=== PATIENT | female | born 1965 | race African-American/Black ===

== ENCOUNTER 2018-06-09 10:39 | Inpatient (IN) | payer BC, OTHER ==
--- NOTE | 2018-06-09 11:37 | PDOC ---
Attending Attestation - Resident Resident Name: Genevieve Cardenas - ED Attending Attestation I have performed the following: I have examined & evaluated the patient, The case was reviewed & discussed with the resident, I agree w/resident's findings & plan, Exceptions are as noted - HPI HPI: 53 yo F history chronic low back pain s/p prior surgery presents with low back pain. She states that she was doing laundry, lifted the bag over her back and developed severe pain. She has been using percocet (she has an unusual dosing regimen- she typically takes half a pill every 3 hours, instead of a full pill every 8 as directed, stating it makes her nauseous otherwise) without relief. Recently treated in [facility] ED for similar complaint. She takes naproxen/ esomeprazole combo as well, which did not give her relief. She has been using a cane to walk, which she did not require before. - Physicial Exam PE: GENERAL: Awake, alert, and fully oriented, in no acute distress HEAD: No signs of trauma EYES: PERRLA, EOMI, sclera anicteric, conjunctiva clear ENT: Auricles normal inspection, hearing grossly normal, nares patent, oropharynx clear without exudates. Moist mucosa NECK: Normal ROM, supple, no lymphadenopathy, JVD, or masses LUNGS: Breath sounds equal, clear to auscultation bilaterally. No wheezes, and no crackles HEART: Regular rate and rhythm, normal S1 and S2, no murmurs, rubs or gallops ABDOMEN: Soft, nontender, normoactive bowel sounds. No guarding, no rebound. No masses EXTREMITIES: Normal range of motion, no edema. No clubbing or cyanosis. No cords, erythema, or tenderness NEUROLOGICAL: Cranial nerves II through XII grossly intact. Normal speech, normal gait. Motor and sensation intact SKIN: Warm, Dry, normal turgor, no rashes or lesions noted. SPINE: +Well-healed scar to the lower lumbar area. No midline tenderness, no stepoffs. - Medical Decision Making Reference #: [id number]- No red flags in past prescriptions 06/09/18 11:55 Pt with history of chronic low back pain exacerbated by a recent event, lifting a bag and throwing it over her back. Will give a combination of medications, as her usual percocet is not helping. 06/09/18 15:28 Pt required multiple rounds (and types) of pain medication. Will admit for intractable pain.
[2018-06-09] MEDS ORDERED: ONDANSETRON 8 MG TABLET (FP) PO ONE ×2 (11:40→11:48)
--- NOTE | 2018-06-09 11:46 | PDOC ---
History of Present Illness - General Chief Complaint: Chronic pain Stated Complaint: BACK PAIN Time Seen by Provider: 06/09/18 11:06 - History of Present Illness Initial Comments: 06/09/18 11:41 Patient is a 53 y/o female with a history of low back pain who presents for increased pain. She had lower spinal surgery in 2011 and has had mild chronic pain since then. Most recently she was doing her laundry and when lifting the bag she hurt her back. She typically follows with a spine surgeon Dr. Espinoza for her pain management. She states she takes 5 mg percocet for her pain but it has not been helping. She was recently discharged from [facility] [place]. Spoke to them who stated she was given 4mg of morphine, they spoke to Dr. Espinoza who stated she can follow up as an outpatient. Patient reports she has pain when going to the bathroom but denies incontinence. She has pain with walking but is still able to walk. She has numbness and tingling in her legs. patient has no other complaints. Past History - Past Medical History Allergies/Adverse Reactions: Allergies Allergy/AdvReac Type Severity Reaction Status Date / Time tramadol Allergy Intermediate Hives Verified 06/09/18 10:42 Home Medications: Ambulatory Orders Naproxen/Esomeprazole Mag [Vimovo Dr 500-20 mg Tablet] 1 each PO DAILY 06/09/18 Oxycodone HCl/Acetaminophen [Percocet 10-325 mg Tablet] 1 each PO DAILY COPD: No - Suicide/Smoking/Psychosocial Hx Smoking History: Current every day smoker Have you smoked in the past 12 months: Yes Number of Cigarettes Smoked Daily: 10 Information on smoking cessation initiated: No Hx Alcohol Use: No Drug/Substance Use Hx: Yes Review of Systems - Review of Systems Constitutional: No: Chills, Fever HEENTM: No: Eye Pain Respiratory: No: Cough, Shortness of Breath Cardiac (ROS): No: Chest Pain ABD/GI: No: Constipated, Diarrhea, Nausea Musculoskeletal: Yes: Back Pain, Joint Pain Neurological: No: Headache *Physical Exam - Vital Signs Last Vital Signs Temp Pulse Resp BP Pulse Ox 97.9 F 72 18 168/92 99 06/09/18 10:42 06/09/18 10:42 06/09/18 10:42 06/09/18 10:42 06/09/18 10:42 - Physical Exam Comments: 06/09/18 11:46 GENERAL: A&O x3 HEART: RRR, no murmurs, rubs, or gallops LUNGS: CTAL B/L ABD: no tenderness to palpation, soft,, non tender EXTREMITIES: no pitting edema NEURO: sensation intact, 5/5 on L leg, 4/6 on R leg SKIN: no rashes or lesions Moderate Sedation - Procedure Monitoring Vital Signs: Procedure Monitoring Vital Signs Temperature 97.9 F 06/09/18 10:42 Pulse Rate 72 06/09/18 10:42 Respiratory Rate 18 06/09/18 10:42 Blood Pressure 168/92 06/09/18 10:42 O2 Sat by Pulse Oximetry (%) 99 06/09/18 10:42 ED Treatment Course - LABORATORY CBC & Chemistry Diagram: 06/09/18 12:43 06/09/18 12:43 Medical Decision Making - Medical Decision Making 06/09/18 11:48 Pain 2/2 to chronic back pain, patient given 5 of percocet and Zofran 06/09/18 17:58 Patient for admission, discussed with Dr. Mosley *DC/Admit/Observation/Transfer Diagnosis at time of Disposition: Intractable pain - Discharge Dispostion Decision to Admit order: Yes - Referrals - Patient Instructions - Post Discharge Activity
[2018-06-09] MEDS ORDERED: LIDOCAINE 5% TOPICAL PATCH TP ONE (11:56)
[2018-06-09] MEDS ORDERED: METHOCARBAMOL 500 MG TABLET PO ONE (11:56)
[2018-06-09] MEDS ORDERED: morphine CARPU-JECT 4 MG/1 ML DISP.SYRIN IVPUSH ONE ×2 (12:29→14:02)
[2018-06-09] MEDS ORDERED: morphine SULFATE 4 MG/ML VIAL ONE ×2 (12:40→14:24)
[2018-06-09] MEDS ORDERED: MORPHINE SULFATE 2 MG/ML VIAL ONE ×2 (12:41→16:43)
[2018-06-09 13:03] LABS: BASO % 1.1 % (0-2.0); EOS % 0.7 % (0-4.5); HEMATOCRIT 39.2 % (32.4-45.2); HEMOGLOBIN 13.6 GM/dL (10.7-15.3); LYMPH % 34.8 % (8-40); MCH 34.3 pg (25.7-33.7); MCHC 34.7 g/dl (32.0-36.0); MEAN CELL VOLUME 98.8 fl (80-96); MEAN PLT VOLUME 9.6 fl (7.5-11.1); MONO % 9.7 % (3.8-10.2); NEUT % 53.7 % (42.8-82.8); PLATELET COUNT 214 K/MM3 (134-434); RBC 3.97 M/mm3 (3.60-5.2); RDW 13.1 % (11.6-15.6)
[2018-06-09 13:38] LABS: ALBUMIN 4.1 g/dl (3.4-5.0); ALK PHOS 91 U/L (45-117); ANION GAP 5 MMOL/L (8-16); BILIRUBIN,TOTAL 0.9 mg/dL (0.2-1); BLOOD UREA NITROGEN 8 mg/dL (7-18); CALCIUM 8.9 mg/dL (8.5-10.1); CHLORIDE 102 mmol/L (98-107); CO2 29 mmol/L (21-32); CREATININE 0.7 mg/dL (0.55-1.3); GLUCOSE,RANDOM 84 mg/dL (74-106); POTASSIUM 3.6 mmol/L (3.5-5.1); SGOT/AST 12 U/L (15-37); SGPT/ALT 16 U/L (13-61); SODIUM 135 mmol/L (136-145); TOT PROT 7.7 g/dl (6.4-8.2)
[2018-06-09] MEDS ORDERED: ACETAMINOPHEN 325 MG TABLET (FP) PO PRN (15:27)
--- NOTE | 2018-06-09 15:57 | HP ---
CHIEF COMPLAINT: inability to ambulate, worsening back pain PCP: Cordell Mendez HISTORY OF PRESENT ILLNESS: Patient is a 53 y/o F w/ PMHx chronic lower back pain s/p L5/S1 surgery in 2011 , under regular pain management care by Dr. Dupree on percocet and carisoprodol, p /w 1 week acute exacerbation of chronic back pain after throwing heavy bag of laundry over her shoulder. Accompanied by new onset fecal and urinary discomfort and possible incontinence -- patient is unsure whether she has full control of bladder and bowels but no overt accident at this time. Pain is not adequately relieved by home percocet dose and continues to worsen. Presented to [facility] ED 2 days ago, was sent home on pain medication and a cane with outpatient followup with pain management scheduled for next Wednesday 06/14. Presents to [facility] d/t further deterioration, Pt is now highly limited in ambulation from pain. ER course was notable for: (1) labs wnl (2) (3) Recent Travel: PAST MEDICAL HISTORY: As per HPI PAST SURGICAL HISTORY: Right hand reconstruction, tubal ligation, L5/S1 surgery as per HPI Social History: Smokin/2 ppd, 17 pack-years Alcohol: no Drugs: no Family History: DJD Allergies tramadol Allergy (Intermediate, Verified 06/09/18 10:42) Hives HOME MEDICATIONS: Home Medications Medication Instructions Recorded Naproxen/Esomeprazole Mag [Vimovo 1 each PO DAILY 06/09/18 Dr 500-20 mg Tablet] Oxycodone HCl/Acetaminophen 1 each PO DAILY 06/09/18 [Percocet 10-325 mg Tablet] REVIEW OF SYSTEMS As per HPI. PHYSICAL EXAMINATION Vital Signs - 24 hr 06/09/18 10:42 Temperature 97.9 F Pulse Rate 72 Respiratory 18 Rate Blood Pressure 168/92 O2 Sat by Pulse 99 Oximetry (%) GENERAL: A&Ox3, in mild distress HEENT: NC/AT, PERRLA, EOMI, MMM NECK: Trachea midline, full range of motion, supple. LUNGS: CTA b/l HEART: RRR no m/r/g ABDOMEN: +bs, soft, mild lower abd tenderness EXTREMITIES: 2+ pulses, warm, well-perfused, no edema. MSK: +right-sided straight leg raising, focal tenderness over L4/L5 level and paraspinal regions b/l NEUROLOGICAL: 4+/5 strength on R hip flexion/extension, +strongly antalgic gait with cane, otherwise no focal deficits, sensorium grossly intact, wire technician intact b/l PSYCH: Normal mood, normal affect. SKIN: Warm, dry, normal turgor, no rashes or lesions noted MARIA FERNANDA: deferred at patient request Laboratory Results - last 24 hr 06/09/18 06/09/18 12:43 12:43 WBC 5.0 RBC 3.97 Hgb 13.6 Hct 39.2 MCV 98.8 H MCH 34.3 H MCHC 34.7 RDW 13.1 Plt Count 214 MPV 9.6 Absolute Neuts (auto) 2.7 Neutrophils % 53.7 Lymphocytes % 34.8 Monocytes % 9.7 Eosinophils % 0.7 Basophils % 1.1 Nucleated RBC % 0 Sodium 135 L Potassium 3.6 Chloride 102 Carbon Dioxide 29 Anion Gap 5 L BUN 8 Creatinine 0.7 Creat Clearance w eGFR 87.87 Random Glucose 84 Calcium 8.9 Total Bilirubin 0.9 AST 12 L ALT 16 Alkaline Phosphatase 91 Total Protein 7.7 Albumin 4.1 ASSESSMENT/PLAN: 53 y/o F w/ PMHx chronic lower back pain s/p L5/S1 surgery in 2011, presents with mechanical acute exacerbation of back pain 2/2 lifting heavy load. #acute back pain -straight leg raise + on right side -subtle weakness of RLE -describes symptoms concerning for fecal/urinary incontinence, will perform MARIA FERNANDA when in more private setting than ED hallway -no imaging available more recent than acute injury -MRI L-spine ordered -Oxy 10 q4 PRN #FEN -no IVF -monitor electrolytes -regular diet #PPx -DVT: heparin sq -GI: not indicated #code -full #dispo -place in observation Visit type - Emergency Visit Emergency Visit: Yes Care time: The patient presented to the Emergency Department on the above date and was hospitalized for further evaluation of their emergent condition. - New Patient This patient is new to me today: Yes Date on this admission: 06/09/18 - Critical Care Critical Care patient: No
[2018-06-09] MEDS ORDERED: FENTANYL PATCH WASTE MC PRN (16:32)
--- NOTE | 2018-06-09 16:42 | PN ---
Teaching Attending Note Name of Resident: Trung Cuenca ATTENDING PHYSICIAN STATEMENT I saw and evaluated the patient. I reviewed the resident's note and discussed the case with the resident. I agree with the resident's findings and plan as documented. SUBJECTIVE:53yo F wtih PMH chronic back pain with previous spinal surgery in 2013 in [place] presenting to the ER with intractable back pain x1 week. states she was lifting a heavy laundry bag which she swung over her shoulder that caused severe back pain which has progressively worsened. pt was seen at [facility] 2 days ago, was given a cane but no imaging was done. pt is now experiencing numbness and tingling of the R anterior thigh. denies CP, SOB, fever, chills, N/V/C/D OBJECTIVE: Last Vital Signs Temp Pulse Resp BP Pulse Ox 97.9 F 72 18 168/92 99 06/09/18 10:42 06/09/18 10:42 06/09/18 10:42 06/09/18 10:42 06/09/18 10:42 General mild distress due to pain CV S1 S2 RRR lungs CTA B/L Back +tenderness on R side ASSESSMENT AND PLAN: 53yo F with chronic back pain with previous surgery presenting with intractable back pain assoc with radiculopathy 1. Intractable back pain with radiculopathy- medicine observation. will obtain MRI of the spine to evaluate. may require surgical intervention. consult neurosurgery. poor response to lidoderm patch in the past. will place fentanyl patch at this time and increase percocet to Q4H and morphine available for severe pain. 2. elevated BP- liekly due to pain. will monitor for now. consider medications if persists 3. DVT ppx- EAM Istop Reference #: [id number]
[2018-06-09] MEDS ORDERED: fentaNYL 12mcg/hr PATCH.TD72 TD SCH (16:45)
[2018-06-09] MEDS: MORPHINE SULFATE 2 MG/ML VIAL IVPUSH PRN ×2 (17:00→23:07)
[2018-06-09 18:58] VITALS: BMI 23.9
[2018-06-09] MEDS: HEPARIN NA (PORCINE) 5,000 UNITS/ML 1ML VIAL SQ SCH (21:28)
[2018-06-09] MEDS: oxyCODONE HCL 5 MG TABLET PO PRN (21:50)
[2018-06-09] MEDS ORDERED: LIDOCAINE PATCH REMOVAL MC SCH (22:00)
[2018-06-10] MEDS ORDERED: LISINOPRIL 10 MG TABLET (FP) PO ONE (00:40)
[2018-06-10] MEDS: oxyCODONE HCL 5 MG TABLET PO PRN ×5 (02:05→21:21)
[2018-06-10] MEDS: MORPHINE SULFATE 2 MG/ML VIAL IVPUSH PRN ×4 (05:03→20:32)
[2018-06-10] MEDS: HEPARIN NA (PORCINE) 5,000 UNITS/ML 1ML VIAL SQ SCH ×3 (05:04→21:12)
[2018-06-10 08:14] LABS: ANION GAP 4 MMOL/L (8-16); BLOOD UREA NITROGEN 10 mg/dL (7-18); CHLORIDE 103 mmol/L (98-107); CO2 31 mmol/L (21-32); CREATININE 0.7 mg/dL (0.55-1.3); GLUCOSE,RANDOM 84 mg/dL (74-106); MAGNESIUM 2.4 mg/dL (1.8-2.4); PHOSPHOROUS 3.9 mg/dL (2.5-4.9); POTASSIUM 4.3 mmol/L (3.5-5.1); SODIUM 138 mmol/L (136-145)
[2018-06-10 08:17] LABS: BASO % 0.6 % (0-2.0); EOS % 1.7 % (0-4.5); HEMATOCRIT 37.4 % (32.4-45.2); HEMOGLOBIN 12.9 GM/dL (10.7-15.3); LYMPH % 47.7 % (8-40); MCH 33.9 pg (25.7-33.7); MCHC 34.6 g/dl (32.0-36.0); MEAN CELL VOLUME 98.2 fl (80-96); MEAN PLT VOLUME 10.4 fl (7.5-11.1); MONO % 12.5 % (3.8-10.2); NEUT % 37.5 % (42.8-82.8); PLATELET COUNT 197 K/MM3 (134-434); RBC 3.81 M/mm3 (3.60-5.2); RDW 12.5 % (11.6-15.6)
--- NOTE | 2018-06-10 11:42 | PN ---
Progress Note (short form) - Note Progress Note: c/o severe pain. states it is improved with pain medication but is unable to ambulate due to the pain. she states the edge is taken off with the medications but is still unable to ambulate. denies CP, SOB, fever, chills, N/V/C/D. does not want fentanyl patch state she knows people with adverse effects from using it Current Medications Generic Name Dose Route Start Last Admin Trade Name Freq PRN Reason Stop Dose Admin Acetaminophen 650 mg 06/09/18 15:27 Tylenol - PO Q4H PRN PAIN LEVEL 1-5 Heparin Sodium (Porcine) 5,000 unit 06/09/18 22:00 06/10/18 05:04 Heparin - SQ Not Given TID AICHA Miscellaneous 1 each 06/09/18 16:32 Duragesic Patch Waste MC PRN PRN PAIN Morphine Sulfate 2 mg 06/10/18 11:38 Morphine Sulfate IVPUSH Q4H PRN PAIN LEVEL 7 - 10 Nicotine 21 mg 06/10/18 11:15 Nicoderm Patch - TD DAILY [facility] Oxycodone HCl 10 mg 06/09/18 15:27 06/10/18 07:11 Roxicodone - PO 10 mg Q4H PRN Administration PAIN LEVEL 6-10 Last Vital Signs Temp Pulse Resp BP Pulse Ox 98.1 F 62 18 142/78 99 06/10/18 06:38 06/10/18 06:38 06/10/18 06:38 06/10/18 06:38 06/09/18 21:00 General mild distress due to pain CV S1 S2 RRR lungs CTA B/L Back +tenderness on R side, decreased strength B/L LE CBCD WBC 5.0 K/mm3 (4.0-10.0) 06/10/18 06:30 RBC 3.81 M/mm3 (3.60-5.2) 06/10/18 06:30 Hgb 12.9 GM/dL (10.7-15.3) 06/10/18 06:30 Hct 37.4 % (32.4-45.2) 06/10/18 06:30 MCV 98.2 fl (80-96) H 06/10/18 06:30 MCHC 34.6 g/dl (32.0-36.0) 06/10/18 06:30 RDW 12.5 % (11.6-15.6) 06/10/18 06:30 Plt Count 197 K/MM3 (134-434) 06/10/18 06:30 MPV 10.4 fl (7.5-11.1) 06/10/18 06:30 CMP Sodium 138 mmol/L (136-145) 06/10/18 06:30 Potassium 4.3 mmol/L (3.5-5.1) 06/10/18 06:30 Chloride 103 mmol/L (98-107) 06/10/18 06:30 Carbon Dioxide 31 mmol/L (21-32) 06/10/18 06:30 Anion Gap 4 MMOL/L (8-16) L 06/10/18 06:30 BUN 10 mg/dL (7-18) 06/10/18 06:30 Creatinine 0.7 mg/dL (0.55-1.3) 06/10/18 06:30 Creat Clearance w eGFR 87.87 (>60) 06/10/18 06:30 Calcium 9.0 mg/dL (8.5-10.1) 06/10/18 06:30 Total Bilirubin 0.9 mg/dL (0.2-1) 06/09/18 12:43 AST 12 U/L (15-37) L 06/09/18 12:43 ALT 16 U/L (13-61) 06/09/18 12:43 Alkaline Phosphatase 91 U/L (45-117) 06/09/18 12:43 Total Protein 7.7 g/dl (6.4-8.2) 06/09/18 12:43 Albumin 4.1 g/dl (3.4-5.0) 06/09/18 12:43 ASSESSMENT AND PLAN: 53yo F with chronic back pain with previous surgery presenting with intractable back pain assoc with radiculopathy 1. Intractable back pain with radiculopathy-pain is improved but unable to ambulate. MRI done and awaiting report. will adjust medications to optimize control. awaiting neurosurg consult to evaluate if intervention is needed. 2. elevated BP- liekly due to pain. will monitor for now. consider medications if persists 3. continuous nicotine dependence- desires to quit. counselled on risks of smoking. start nicotine patch 4. DVT ppx- EAM Visit type - Emergency Visit Emergency Visit: Yes ED Registration Date: 06/09/18 Care time: The patient presented to the Emergency Department on the above date and was hospitalized for further evaluation of their emergent condition. - New Patient This patient is new to me today: No - Critical Care Critical Care patient: No - Discharge Referral Referred to [facility] No
[2018-06-10] MEDS: NICOTINE 21 MG/24 HOURS TOPICAL PATCH TD SCH (11:48)
--- NOTE | 2018-06-10 16:40 | EKG ---
Test Reason : Blood Pressure : / mmHG Vent. Rate : 057 BPM Atrial Rate : 057 BPM P-R Int : 138 ms QRS Dur : 078 ms QT Int : 440 ms P-R-T Axes : 060 048 054 degrees QTc Int : 428 ms SINUS BRADYCARDIA POSSIBLE LEFT ATRIAL ENLARGEMENT BORDERLINE ECG NO PREVIOUS ECGS AVAILABLE Confirmed by DAVID SIFUENTES, THERESA ([id number]) on 06/10/2018 4:39:54 PM Referred By: Confirmed By:THERESA HERNANDEZ MD
[2018-06-11] MEDS: MORPHINE SULFATE 2 MG/ML VIAL IVPUSH PRN ×7 (00:46→23:32)
[2018-06-11] MEDS: HEPARIN NA (PORCINE) 5,000 UNITS/ML 1ML VIAL SQ SCH ×3 (05:16→21:23)
[2018-06-11] MEDS: oxyCODONE HCL 5 MG TABLET PO PRN ×4 (05:37→21:31)
[2018-06-11] MEDS: NICOTINE 21 MG/24 HOURS TOPICAL PATCH TD SCH (09:25)
--- NOTE | 2018-06-11 11:39 | PN ---
Teaching Attending Note Name of Resident: Trung Cuenca ATTENDING PHYSICIAN STATEMENT I saw and evaluated the patient. I reviewed the resident's note and discussed the case with the resident. I agree with the resident's findings and plan as documented. SUBJECTIVE:no BM since arrival. pain improves with pain medication but does not last long enough. still unable to ambulate due to pain. denies Cp, SOB, fever, chills, N/V/D OBJECTIVE: Last Vital Signs Temp Pulse Resp BP Pulse Ox 98.4 F 68 20 128/76 99 06/11/18 05:43 06/11/18 05:43 06/11/18 05:43 06/11/18 05:43 06/10/18 21:00 General NAD ASSESSMENT AND PLAN: 53yo F with chronic back pain with previous surgery presenting with intractable back pain assoc with radiculopathy 1. Intractable back pain with radiculopathy-MRI showing L2-L3 disc herniation with impingement on the nerve, L4-L5 and L5-S1 disc bulge. awaiting neurosurg recommendations. will increase morphine to Q3H as needed. 2. constipation- liklely opiate induced. start stool softeners 3. elevated BP- liekly due to pain. will monitor for now. consider medications if persists 4. continuous nicotine dependence- desires to quit. counselled on risks of smoking. on nicotine patch 5. DVT ppx- EAM
--- NOTE | 2018-06-11 12:04 | PN ---
Physical Exam: SUBJECTIVE: Patient seen and examined at bedside. Condition unchanged, pain persistent. No issues passing bowel movements, intermittently straining to pass urine. OBJECTIVE: Vital Signs Period Temp Pulse Resp BP Sys/Bocanegra Pulse Ox Last 24 Hr 98.2 F-98.4 F 67-80 20-20 128-145/76-100 99 GENERAL: A&Ox3, in mild distress HEENT: NC/AT, PERRLA, EOMI, MMM NECK: Trachea midline, full range of motion, supple. LUNGS: CTA b/l HEART: RRR no m/r/g ABDOMEN: +bs, soft, mild lower abd tenderness EXTREMITIES: 2+ pulses, warm, well-perfused, no edema. MSK: +right-sided straight leg raising, focal tenderness over L4/L5 level and paraspinal regions b/l NEUROLOGICAL: 4+/5 strength on R hip flexion/extension, +strongly antalgic gait with cane, significant pain with assessment of RLE strength, otherwise no focal deficits, sensorium grossly intact, auto care center manager intact b/l PSYCH: Normal mood, normal affect. SKIN: Warm, dry, normal turgor, no rashes or lesions noted MARIA FERNANDA: deferred at patient request Active Medications Generic Name Dose Route Start Last Admin Trade Name Freq PRN Reason Stop Dose Admin Acetaminophen 650 mg 06/09/18 15:27 Tylenol - PO Q4H PRN PAIN LEVEL 1-3 Heparin Sodium (Porcine) 5,000 unit 06/09/18 22:00 06/11/18 05:16 Heparin - SQ Not Given TID [facility] Miscellaneous 1 each 06/09/18 16:32 Duragesic Patch Waste MC PRN PRN PAIN Morphine Sulfate 2 mg 06/11/18 10:09 Morphine Sulfate IVPUSH Q3H PRN PAIN LEVEL 7 - 10 Nicotine 21 mg 06/10/18 11:15 06/11/18 09:25 Nicoderm Patch - TD 21 mg DAILY AICHA Administration Oxycodone HCl 10 mg 06/11/18 10:09 Roxicodone - PO Q4H PRN PAIN LEVEL 4 - 6 ASSESSMENT/PLAN: 53 y/o F w/ PMHx chronic lower back pain s/p L5/S1 surgery in 2011, presents with mechanical acute exacerbation of back pain 2/2 lifting heavy load. #acute back pain -MRI L-spine: acute on chronic changes, most prominently extrusion of R L2/L3 disc causing L2 impingement, consistent with symptoms; L4, L5, S1 findings appear chronic -Patient states she is unable to ambulate more than a few feet d/t pain -Neurosurgery consulted -case d/w Dr. Briones, likely to recommend surgery this week -tylenol, Oxy, morphine per pain scale -Oxy 10 q4 PRN #FEN -no IVF -monitor electrolytes -regular diet #PPx -DVT: heparin sq -GI: not indicated #code -full #dispo -upgraded to med/surg inpatient Visit type - Emergency Visit Emergency Visit: No - New Patient This patient is new to me today: No - Critical Care Critical Care patient: No
[2018-06-11] MEDS ORDERED: SENNOSIDES 8.6MG TABLET (FP) PO PRN (15:07)
[2018-06-11] MEDS ORDERED: oxyCODONE HCL 5 MG TABLET ONE (15:21)
[2018-06-11] MEDS ORDERED: morphine SULFATE 4 MG/ML VIAL ONE (16:30)
[2018-06-11] MEDS: DOCUSATE SODIUM 100 MG CAPSULE (FP) PO SCH ×2 (16:45→21:22)
--- NOTE | 2018-06-11 19:11 | CONSULT ---
Consult - text type - Consultation Consultation Note: NEUROSURGERY CONSULTATION Awa Ceballos is a 53 year old female who was treated with Right L5S1 hemilaminotomy and discectomy in [place] in 2011. She reports doing reasonably well after this procedure. She has been managed by Pain Management with Dr. Dupree for years. She injured herself one week ago while lifting a heavy laundry bag. She has not responded to conservative measures including rest and activity modification. The patient has previously undergone Physical Therapy for her pains. She describes pain which is significantly aggravated by vibration and jostling such as riding in a car over bumpy roads, rail road tracks and pot holes. She also has aggravation with Valsalva's maneuver. She does not walk better while pushing a shopping cart or with a stooped posture. MRI Lumbar demonstrates moderate to severe degenerative changes at L45 and L5S1 with disc bulges, facet and ligamentum flavum hypertrophy resulting in lateral recess and foraminal stenosis, and Modic changes. There is a Right foraminal L23 disc protrusion as well. The patient was seen in the ER at [facility] 3 days ago where she was treated and released. She was discharged with pain medication, a cane and an appointment with Pain Management on 06/14/18. The patient presented to the [facility] ER yesterday due to progressive deterioration and being unable to walk. She complains of difficulty with her bowel and bladder evacuation, however , she describes good sensation and control and primary difficulty in ambulating to the bathroom in time. I had a discussion with the patient regarding various potential treatments including bracing, injections (OLIVIA versus facet injections), additional Physical Therapy, medications/Pain Management and surgical intervention. I described a range of options including focal procedures: decompression with some combination of discectomies and facetectomies at one or more levels with or without fusion. Another option may include L2-S1 decompression with reoperative exposure at L5S1 and L2-S1 posterior instrumentation with possible interbody arthrodesis. I would like to understand her pain generators better and will order dynamic plain films to evaluate her Lumbar flexibility and stability. Once these studies have been completed, I will review them and return to discuss the best options for her.
[2018-06-12] MEDS: oxyCODONE HCL 5 MG TABLET PO PRN ×3 (00:33→08:49)
[2018-06-12] MEDS: MORPHINE SULFATE 2 MG/ML VIAL IVPUSH PRN ×3 (04:04→11:30)
[2018-06-12] MEDS: DOCUSATE SODIUM 100 MG CAPSULE (FP) PO SCH ×3 (05:29→21:41)
[2018-06-12] MEDS: HEPARIN NA (PORCINE) 5,000 UNITS/ML 1ML VIAL SQ SCH ×3 (05:29→21:41)
[2018-06-12 08:19] LABS: BASO % 0.6 % (0-2.0); EOS % 2.2 % (0-4.5); HEMATOCRIT 38.7 % (32.4-45.2); HEMOGLOBIN 13.6 GM/dL (10.7-15.3); LYMPH % 41.7 % (8-40); MCH 34.8 pg (25.7-33.7); MEAN CELL VOLUME 99.2 fl (80-96); MEAN PLT VOLUME 10.8 fl (7.5-11.1); MONO % 13.4 % (3.8-10.2); NEUT % 42.1 % (42.8-82.8); PLATELET COUNT 174 K/MM3 (134-434); RDW 12.3 % (11.6-15.6); WHITE BLOOD COUNT 3.8 K/mm3 (4.0-10.0)
[2018-06-12 08:44] LABS: ANION GAP 5 MMOL/L (8-16); BLOOD UREA NITROGEN 9 mg/dL (7-18); CALCIUM 8.3 mg/dL (8.5-10.1); CHLORIDE 104 mmol/L (98-107); CO2 29 mmol/L (21-32); CREATININE 0.7 mg/dL (0.55-1.3); GLUCOSE,RANDOM 88 mg/dL (74-106); MAGNESIUM 2.1 mg/dL (1.8-2.4); POTASSIUM 4.4 mmol/L (3.5-5.1); SODIUM 138 mmol/L (136-145)
[2018-06-12 08:50] LABS: INR 0.96 (0.83-1.09); PROTHROMBIN TIME (PATIENT) 11.3 SEC (9.7-13.0)
[2018-06-12] MEDS: NICOTINE 21 MG/24 HOURS TOPICAL PATCH TD SCH ×2 (08:50→10:28)
[2018-06-12] MEDS: POLYETHYLENE GLYCOL 3350 119 GM BTL PO SCH ×2 (08:50→10:28)
[2018-06-12 08:53] LABS: ACTIVATED PTT 34.5 SECONDS (25.2-36.5)
--- NOTE | 2018-06-12 11:38 | PN ---
Physical Exam: SUBJECTIVE: Patient seen and examined at bedside. Condition unchanged, pain persistent. No issues passing bowel movements, intermittently straining to pass urine. OBJECTIVE: Vital Signs Period Temp Pulse Resp BP Sys/Bocanegra Pulse Ox Last 24 Hr 98 F-98.2 F 65-115 20-20 149-159/89-100 99 GENERAL: A&Ox3, in mild distress HEENT: NC/AT, PERRLA, EOMI, MMM NECK: Trachea midline, full range of motion, supple. LUNGS: CTA b/l HEART: RRR no m/r/g ABDOMEN: +bs, soft, mild lower abd tenderness EXTREMITIES: 2+ pulses, warm, well-perfused, no edema. MSK: +right-sided straight leg raising, focal tenderness over L4/L5 level and paraspinal regions b/l NEUROLOGICAL: 4+/5 strength on R hip flexion/extension, significant pain with assessment of RLE strength, otherwise no focal deficits, sensorium grossly intact, bark peeler intact b/l PSYCH: Normal mood, normal affect. SKIN: Warm, dry, normal turgor, no rashes or lesions noted MARIA FERNANDA: Pt refused Laboratory Results - last 24 hr 06/12/18 06/12/18 06/12/18 06:00 06:00 06:00 WBC 3.8 L RBC 3.90 Hgb 13.6 Hct 38.7 MCV 99.2 H MCH 34.8 H MCHC 35.0 RDW 12.3 Plt Count 174 MPV 10.8 Absolute Neuts (auto) 1.6 Neutrophils % 42.1 L Lymphocytes % 41.7 H Monocytes % 13.4 H Eosinophils % 2.2 Basophils % 0.6 Nucleated RBC % 0 PT with INR 11.30 INR 0.96 PTT (Actin FS) 34.5 Sodium 138 Potassium 4.4 Chloride 104 Carbon Dioxide 29 Anion Gap 5 L BUN 9 Creatinine 0.7 Creat Clearance w eGFR 87.87 Random Glucose 88 Calcium 8.3 L Magnesium 2.1 Active Medications Generic Name Dose Route Start Last Admin Trade Name Freq PRN Reason Stop Dose Admin Acetaminophen 650 mg 06/09/18 15:27 Tylenol - PO Q4H PRN PAIN LEVEL 1-3 Docusate Sodium 100 mg 06/11/18 15:15 06/12/18 05:29 Colace - PO Not Given TID [facility] Heparin Sodium (Porcine) 5,000 unit 06/09/18 22:00 06/12/18 05:29 Heparin - SQ Not Given TID [facility] Miscellaneous 1 each 06/09/18 16:32 Duragesic Patch Waste MC PRN PRN PAIN Morphine Sulfate 2 mg 06/11/18 10:09 06/12/18 11:30 Morphine Sulfate IVPUSH 2 mg Q3H PRN Administration PAIN LEVEL 7 - 10 Nicotine 21 mg 06/10/18 11:15 06/12/18 10:28 Nicoderm Patch - TD Not Given DAILY [facility] Oxycodone HCl 10 mg 06/11/18 10:09 06/12/18 08:49 Roxicodone - PO 10 mg Q4H PRN Administration PAIN LEVEL 4 - 6 Polyethylene Glycol 17 gm 06/12/18 10:00 06/12/18 10:28 Miralax (For Daily Use) - PO Not Given DAILY [facility] Senna 2 tab 06/12/18 22:00 Senna - PO [facility] ASSESSMENT/PLAN: 53 y/o F w/ PMHx chronic lower back pain s/p L5/S1 surgery in 2011, presents with mechanical acute exacerbation of back pain 2/2 lifting heavy load. #acute back pain -MRI L-spine: acute on chronic changes, most prominently extrusion of R L2/L3 disc causing L2 impingement, consistent with symptoms; moderate to severe degenerative changes at L45 and L5S1 with disc bulges, facet and ligamentum flavum hypertrophy resulting in lateral recess and foraminal stenosis, and Modic changes -Patient states she is unable to ambulate more than a few feet d/t pain -Neurosurgery consulted -case d/w Dr. Briones, who writes: "potential treatments including bracing, injections (OLIVIA versus facet injections), additional Physical Therapy, medications/Pain Management and surgical intervention. I described a range of options including focal procedures: decompression with some combination of discectomies and facetectomies at one or more levels with or without fusion. Another option may include L2-S1 decompression with reoperative exposure at L5S1 and L2-S1 posterior instrumentation with possible interbody arthrodesis." -Lumbar XR shows no blastic or lytic changes, no Fx, narrowing of L5/S1 space; Dr. Briones to review to guide further treatment decisions -tylenol, Oxy, morphine per pain scale -Oxy 10 q4 PRN #FEN -no IVF -monitor electrolytes -regular diet #PPx -DVT: heparin sq -GI: not indicated #code -full #dispo -cont to monitor on med/surg Visit type - Emergency Visit Emergency Visit: No - New Patient This patient is new to me today: No - Critical Care Critical Care patient: No
[2018-06-12] MEDS ORDERED: oxyCODONE HCL 10 MG SUSTAINED ACTING TABLET PO PRN (12:04)
[2018-06-12] MEDS ORDERED: ACETAMINOPHEN 325 MG TABLET (FP) PO PRN (12:06)
[2018-06-12] MEDS ORDERED: MORPHINE SULFATE 2 MG/ML VIAL IVPUSH PRN (12:06)
[2018-06-12] MEDS ORDERED: diphenhydrAMINE HCL 25 MG CAPSULE (FP) PO PRN (12:07)
[2018-06-12] MEDS ORDERED: oxyCODONE HCL 10 MG SUSTAINED ACTING TABLET PO SCH ×2 (12:22→12:45)
[2018-06-12] MEDS ORDERED: oxyCODONE HCL 20 MG SUSTAINED ACTING TABLET PO SCH (12:45)
[2018-06-12] MEDS: oxyCODONE HCL 10 MG SUSTAINED ACTING TABLET PO SCH ×2 (13:26→23:35)
--- NOTE | 2018-06-12 16:38 | PN ---
Teaching Attending Note Name of Resident: Trung Cuenca ATTENDING PHYSICIAN STATEMENT I saw and evaluated the patient. I reviewed the resident's note and discussed the case with the resident. I agree with the resident's findings and plan as documented. SUBJECTIVE:pain is not controlled. says her pain is so unbearable that she is unable to use the restroom. denies CP, SOB, fever, chills, N/V/C/D. had 1 BM yesterday OBJECTIVE: Last Vital Signs Temp Pulse Resp BP Pulse Ox 98.5 F 64 20 158/80 99 06/12/18 14:49 06/12/18 14:49 06/12/18 14:49 06/12/18 14:49 06/11/18 21:00 General NAD ASSESSMENT AND PLAN: 53yo F with chronic back pain with previous surgery presenting with intractable back pain assoc with radiculopathy 1. Intractable back pain with radiculopathy-MRI showing L2-L3 disc herniation with impingement on the nerve, L4-L5 and L5-S1 disc bulge. will likely require surgery at this time. awaiting neurosurg recommendations. will start oxycodone 20mg ER BID to pain regimen. re-explained expectation to patient that goal is not to be pain free. cont iwth oxy and morphine prn pain. 2. constipation- liklely opiate induced. 1 BM yesterday. add miralax goal of 1- 2 BM daily 3. elevated BP- liekly due to pain. will monitor for now. consider medications if persists 4. continuous nicotine dependence- desires to quit. counselled on risks of smoking. on nicotine patch 5. DVT ppx- EAM
[2018-06-12] MEDS ORDERED: morphine SULFATE 4 MG/ML VIAL IVPUSH ONE (17:15)
[2018-06-12] MEDS: morphine SULFATE 4 MG/ML VIAL IVPUSH PRN ×2 (20:33→23:53)
[2018-06-12] MEDS ORDERED: SENNOSIDES 8.6MG TABLET (FP) PO SCH (22:00)
--- NOTE | 2018-06-12 23:31 | CONSULT ---
Consult - text type - Consultation Consultation Note: Patient continues to have significant pain which makes any ambulation exceptionally painful. She can make it to and from the bathroom, however, appears to be in great distress. She leans to the Left to alleviate her worst pain which is in her anterior thigh on the Right side and radiates to her upper Lumbar spine. Plain film radiographs do not demonstrate any gross instability. I explained that I feel her current exacerbation will likely be time limited and may improve over the next 2 months. The Right sided disc herniation at L23 appears to be the most acute finding and is consistent with her mechanism of injury and pain pattern. I discussed a variety of treatment options with the patient in detail and again offered the possibility of further expectant management, Physical Therapy and Epidural Steroid Injections. She strongly rejects these treatment options and is desirous of a more definitive solution. Given her extremely poor quality of life and impairment of her activities of daily living, it may be reasonable to proceed with surgery. The degenerative changes at L45 and L5S1 involve facet and ligamentum flavum hypertrophy, lateral recess stenosis and disc bulges and scar tissue from the Right L5S1 hemilaminotomy. Although these findings may be contributing to her pain syndrome and may benefit from surgical attention - most likely L4-S1 decompression and fusion - they do not appear to be directly related to her recent progression and current pattern of most severe symptoms. The patient greatly wishes to avoid instrumented fusion at this time, although she verbalizes an understanding that it may be required in the future. I described the risks, benefits and alternatives to Right L23 discectomy in great detail. I explained that the risks included, but were not limited to: , coma, paralysis, bleeding, infection , CSF leakage possibly requiring spinal drainage or additional surgery, failure to improve and the need for additional surgery. Indeed, I explained that a substantial possibility remained that the lower Lumbar spine may require treatment and possibly even might require extension to L2 if there is significant L23 instability. I offered the patient the option of seeking another opinion or another surgeon. All questions were answered. Informed consent was obtained. I will discuss this case further with Dr. Morales and consider surgery as soon as Wednesday June 13, 2018 if the patient is medically fit to proceed. The patient expresses her strong desire to go forward as described and also understands that a more extensive procedure may be required to address the other pathology which would not be targeted by this procedure.
[2018-06-13] MEDS: morphine SULFATE 4 MG/ML VIAL IVPUSH PRN ×3 (04:55→11:00)
[2018-06-13] MEDS: DOCUSATE SODIUM 100 MG CAPSULE (FP) PO SCH ×3 (05:11→21:52)
[2018-06-13] MEDS: HEPARIN NA (PORCINE) 5,000 UNITS/ML 1ML VIAL SQ SCH ×2 (05:11→21:52)
[2018-06-13] MEDS: oxyCODONE HCL 10 MG SUSTAINED ACTING TABLET PO SCH (09:45)
[2018-06-13] MEDS: POLYETHYLENE GLYCOL 3350 119 GM BTL PO SCH (09:45)
[2018-06-13] MEDS: NICOTINE 21 MG/24 HOURS TOPICAL PATCH TD SCH (09:46)
--- NOTE | 2018-06-13 10:54 | PN ---
Teaching Attending Note Name of Resident: Trung Cuenca ATTENDING PHYSICIAN STATEMENT I saw and evaluated the patient. I reviewed the resident's note and discussed the case with the resident. I agree with the resident's findings and plan as documented. SUBJECTIVE:states pain is improved with current regimen. has no current CP or SOB and has not had any while doing light activity at home, only limited due to mobility. had no complications with anesthesia in the past OBJECTIVE: Last Vital Signs Temp Pulse Resp BP Pulse Ox 98.5 F 76 18 146/96 99 06/13/18 09:19 06/13/18 09:19 06/13/18 09:19 06/13/18 09:19 06/12/18 21:00 General NAD CV S1 S2 RRR no murmur/rub/gallop Lungs CTA B/L no wheezing/rales/rhonchi ASSESSMENT AND PLAN: 53yo F with chronic back pain with previous surgery presenting with intractable back pain assoc with radiculopathy 1. Intractable back pain with radiculopathy-Pt is low risk for intermediate risk procedure. METS >4 with no complications known with anesthesia in the past. Hold NSAIDS going forward.(has not received any since hospitalization). further recommendations per surgery. PT post-op to assess need for RADHA. pain control. 2. constipation- liklely opiate induced. +BM. monitor for daily BM 3. elevated BP- liekly due to pain. will monitor for now. consider medications if persists 4. continuous nicotine dependence- desires to quit. counselled on risks of smoking. on nicotine patch 5. DVT ppx- EAM 6. will assess need for RADHA post-op
--- NOTE | 2018-06-13 11:34 | PN ---
Physical Exam: SUBJECTIVE: Patient seen and examined at bedside. Pain is as well-controlled as it has been since hospitalization, no other complaints. For surgery today. OBJECTIVE: Vital Signs Period Temp Pulse Resp BP Sys/Bocanegra Pulse Ox Last 24 Hr 98.4 F-98.5 F 60-76 18-20 113-165/68-96 99 GENERAL: A&Ox3, in mild distress HEENT: NC/AT, PERRLA, EOMI, MMM NECK: Trachea midline, full range of motion, supple. LUNGS: CTA b/l HEART: RRR no m/r/g ABDOMEN: +bs, soft, mild lower abd tenderness EXTREMITIES: 2+ pulses, warm, well-perfused, no edema. MSK: +right-sided straight leg raising, focal tenderness over L4/L5 level and paraspinal regions b/l NEUROLOGICAL: 4+/5 strength on R hip flexion/extension, significant pain with assessment of RLE strength, otherwise no focal deficits, sensorium grossly intact, infantry indirect fire crewmember intact b/l PSYCH: Normal mood, normal affect. SKIN: Warm, dry, normal turgor, no rashes or lesions noted MARIA FERNANDA: Pt refused Laboratory Results - last 24 hr 06/12/18 06/12/18 06:00 12:50 Blood Type AB POSITIVE AB POSITIVE Antibody Screen Negative Active Medications Generic Name Dose Route Start Last Admin Trade Name Freq PRN Reason Stop Dose Admin Acetaminophen 650 mg 06/12/18 12:06 Tylenol - PO Q4H PRN PAIN LEVEL 1-5 Diphenhydramine HCl 25 mg 06/12/18 12:07 06/12/18 13:25 Benadryl - PO 25 mg Q6H PRN Administration FOR ITCHING Docusate Sodium 100 mg 06/11/18 15:15 06/13/18 05:11 Colace - PO Not Given TID [facility] Heparin Sodium (Porcine) 5,000 unit 06/09/18 22:00 06/13/18 05:11 Heparin - SQ Not Given TID [facility] Miscellaneous 1 each 06/09/18 16:32 Duragesic Patch Waste MC PRN PRN PAIN Morphine Sulfate 4 mg 06/12/18 17:02 06/13/18 11:00 Morphine Sulfate IVPUSH 4 mg Q3H PRN Administration PAIN LEVEL 6-10 Nicotine 21 mg 06/10/18 11:15 06/13/18 09:46 Nicoderm Patch - TD 21 mg DAILY [facility] Administration Oxycodone HCl 20 mg 06/12/18 13:15 06/13/18 09:45 Oxycontin - PO 20 mg BID [facility] Administration Polyethylene Glycol 17 gm 06/12/18 10:00 06/13/18 09:45 Miralax (For Daily Use) - PO Not Given DAILY [facility] Senna 2 tab 06/12/18 22:00 06/12/18 21:41 Senna - PO 2 tab HS [facility] Administration ASSESSMENT/PLAN: 53 y/o F w/ PMHx chronic lower back pain s/p L5/S1 surgery in 2011, presents with mechanical acute exacerbation of back pain 2/2 lifting heavy load. #acute back pain -neurosurgery consulted -MRI L-spine with multiple pathologies, most acutely R L2/L3 extrusion -for L2/L3 discectomy today -further pain management as per NeuroSx -IS -waiting further surgical recommendations #FEN -fluids as per NeuroSx -monitor electrolytes -resume diet as per NeuroSx #PPx -DVT: mechanical only following spinal Sx, await further surgical recommendations -GI: not indicated #code -full #dispo -cont to monitor on med/surg Visit type - Emergency Visit Emergency Visit: No - New Patient This patient is new to me today: No - Critical Care Critical Care patient: No
[2018-06-13] MEDS ORDERED: morphine SULFATE/Preservative Free 0.5 MG/ML (1cc Syringe) ONE (13:14)
[2018-06-13] MEDS ORDERED: LIDOCAINE 1%-EPI 1:100,000 30 ML MDV IJ ONE (14:06)
[2018-06-13] MEDS ORDERED: BUPIVACAINE LIPOSOME/PF (EXPAREL) 266 MG/20 ML VIAL ONE (14:06)
[2018-06-13] MEDS ORDERED: GENTAMICIN SO4 80 MG/2 ML VIAL ONE (14:06)
[2018-06-13] MEDS ORDERED: THROMBIN (BOVINE) 20,000 UNIT VIAL TP ONE (14:29)
[2018-06-13] MEDS ORDERED: SUCCINYLCHOLINE CHLORIDE 200 MG/10 ML VIAL ONE (14:47)
[2018-06-13] MEDS ORDERED: ROCURONIUM BROMIDE 50 MG/5 ML VIAL ONE ×2 (14:47→15:32)
[2018-06-13] MEDS ORDERED: PROPOFOL 20 ML ONE (14:47)
[2018-06-13] MEDS ORDERED: MIDAZOLAM HCL 2 MG/2 ML SINGLE DOSE VIAL ONE (15:11)
[2018-06-13] MEDS ORDERED: ceFAZolin SODIUM 1 GM VIAL IVPB ONE (15:15)
[2018-06-13] MEDS ORDERED: VANCOMYCIN 1,000 MG VIAL (RESTRICTED TO ID ONLY) IVPB ONE (15:15)
[2018-06-13] MEDS ORDERED: BUPIVACAINE HCL/PF 0.25% (2.5MG/ML) 10 ML VIAL ONE (16:44)
[2018-06-13] MEDS ORDERED: BUPIVACAINE LIPOSOME/PF (EXPAREL) 266 MG/20 ML VIAL NR ONE ×2 (16:48)
[2018-06-13] MEDS ORDERED: BUPIVACAINE HCL/PF 0.25% (2.5MG/ML) 10 ML VIAL IJ ONE ×2 (16:48)
[2018-06-13] MEDS ORDERED: NEOSTIGMINE METHYLSULFATE 0.5 MG/1 ML - 10 ML MDV ONE (16:53)
[2018-06-13] MEDS ORDERED: ONDANSETRON 4 MG/2 ML VIAL IVPUSH PRN ×2 (17:12→18:23)
--- NOTE | 2018-06-13 17:19 | OP ---
Operative Note - Note: Operative Date: 06/13/18 Pre-Operative Diagnosis: L2-L3 discitis Operation: right naomi laminotomy of L2-L3 with disectomy Surgeon: Brett Briones Core Setter: Coral Jain Anesthesiologist/ROCKET MOTOR TESTER: Jelani Robison Anesthesia: General, Spinal (duramoph given) Specimens Removed: L2-L3 disc Estimated Blood Loss (mls): 200 Drains, Volume Out (mls): 75 (rao) Fluid Volume Replaced (mls): 2,200 Operative Report Dictated: Yes
[2018-06-13] MEDS ORDERED: ACETAMINOPHEN 1000 MG/100 ML VIAL (NON FORMULARY) IVPB ONE (17:26)
[2018-06-13] MEDS ORDERED: ACETAMINOPHEN INJECTION 100 ML IVPB ONE (17:27)
[2018-06-13] MEDS: LACTATED RINGERS SOLUTION 1,000 ML IV SCH (21:51)
[2018-06-13] MEDS: CEFAZOLIN 1 GM/D5W 1 GM/50 ML BAG IVPB SCH (21:52)
[2018-06-13] MEDS: SENNOSIDES 8.6MG TABLET (FP) PO SCH (21:53)
[2018-06-14] MEDS: ACETAMINOPHEN 325 MG TABLET (FP) PO SCH ×3 (00:05→11:50)
[2018-06-14] MEDS: LACTATED RINGERS SOLUTION 1,000 ML IV SCH ×2 (06:07→16:56)
[2018-06-14] MEDS: CEFAZOLIN 1 GM/D5W 1 GM/50 ML BAG IVPB SCH (06:09)
[2018-06-14] MEDS: HEPARIN NA (PORCINE) 5,000 UNITS/ML 1ML VIAL SQ SCH ×3 (06:09→22:24)
[2018-06-14] MEDS: DOCUSATE SODIUM 100 MG CAPSULE (FP) PO SCH ×3 (06:09→22:25)
[2018-06-14] MEDS ORDERED: oxyCODONE HCL 5 MG TABLET PO PRN ×2 (07:34)
[2018-06-14] MEDS: morphine SULFATE 4 MG/ML VIAL IVPUSH PRN ×2 (07:44→11:43)
[2018-06-14] MEDS: diphenhydrAMINE HCL 25 MG CAPSULE (FP) PO PRN ×2 (08:13→18:32)
[2018-06-14 08:35] LABS: EOS % 0.5 % (0-4.5); HEMATOCRIT 34.4 % (32.4-45.2); HEMOGLOBIN 12.2 GM/dL (10.7-15.3); MCHC 35.5 g/dl (32.0-36.0); MEAN CELL VOLUME 98.6 fl (80-96); MEAN PLT VOLUME 9.9 fl (7.5-11.1); MONO % 9.7 % (3.8-10.2); NEUT % 58.8 % (42.8-82.8); PLATELET COUNT 177 K/MM3 (134-434); RBC 3.49 M/mm3 (3.60-5.2); RDW 12.5 % (11.6-15.6); WHITE BLOOD COUNT 6.3 K/mm3 (4.0-10.0)
[2018-06-14 09:06] LABS: ANION GAP 5 MMOL/L (8-16); BLOOD UREA NITROGEN 9 mg/dL (7-18); CALCIUM 8.4 mg/dL (8.5-10.1); CHLORIDE 105 mmol/L (98-107); CO2 29 mmol/L (21-32); CREATININE 0.8 mg/dL (0.55-1.3); GLUCOSE,RANDOM 84 mg/dL (74-106); MAGNESIUM 1.8 mg/dL (1.8-2.4); PHOSPHOROUS 3.3 mg/dL (2.5-4.9); POTASSIUM 3.9 mmol/L (3.5-5.1); SODIUM 139 mmol/L (136-145)
--- NOTE | 2018-06-14 09:13 | PN ---
Progress Note (short form) - Note Progress Note: 53yo F s/p Rt hemilaminotomy L2/3 POD 1, seen and examined at bedside. Pt complaining of severe back pain after getting up to use the bathroom. Pt states that she was fine all night until she got up and moved around this morning. Pt states that the pain is running down her legs. Pt denies any incontinence or parasthesias. History difficult to obtain due to pain. Last Vital Signs Temp Pulse Resp BP Pulse Ox 97.5 F L 58 L 20 137/82 95 06/14/18 06:00 06/14/18 06:00 06/14/18 06:00 06/14/18 06:00 06/13/18 21:00 CBC, BMP 06/14/18 08:20 06/14/18 08:20 PE: Gen: A&O x3 Resp: breathing comfortably Ext: moving all extremities Pt refused more thorough physical exam. Problem List - Problems (1) S/P laminectomy Assessment/Plan: Plan - will increase pain medications - emphasize OOB/ambulate - PT -will reevaluate later today when pain better controlled. Code(s): Z98.890 - OTHER SPECIFIED POSTPROCEDURAL STATES
[2018-06-14] MEDS: NICOTINE 21 MG/24 HOURS TOPICAL PATCH TD SCH (09:52)
[2018-06-14] MEDS: FOLIC ACID 1 MG TABLET (FP) PO SCH (09:54)
[2018-06-14] MEDS: FERROUS SO4 325 MG TABLET (FP) PO SCH (09:54)
[2018-06-14] MEDS: POLYETHYLENE GLYCOL 3350 119 GM BTL PO SCH (09:57)
[2018-06-14] MEDS ORDERED: HYDROmorphone *PCA* 10MG/50ML DISP.SYRIN PCA SCH ×3 (13:00→14:30)
[2018-06-14] MEDS ORDERED: ACETAMINOPHEN 1000 MG/100 ML VIAL (NON FORMULARY) IVPB ONE (13:01)
--- NOTE | 2018-06-14 13:03 | PN ---
Progress Note (short form) - Note Progress Note: POD1 s/p L2-3 laminectomy. Pt with severe pain today - will start INDUSTRIAL NURSE for now. Will also add one dose of ofirmev IV. Will follow
--- NOTE | 2018-06-14 13:40 | PN ---
Physical Exam: SUBJECTIVE: Patient seen and examined at bedside. POD 1 s/p Rt hemilaminotomy L2 /3. Tolerated procedure well but developed severe pain overnight after attempting to use the restroom. No urination, flatus, BMs, as yet. OBJECTIVE: Vital Signs Period Temp Pulse Resp BP Sys/Bocanegra Pulse Ox Last 24 Hr 97.5 F-98.9 F 58-87 14-20 94-146/54-88 95-100 GENERAL: A&Ox3, in mild distress HEENT: NC/AT, PERRLA, EOMI, MMM NECK: Trachea midline, full range of motion, supple. LUNGS: CTA b/l HEART: RRR no m/r/g ABDOMEN: +bs, soft, mild lower abd tenderness EXTREMITIES: 2+ pulses, warm, well-perfused, no edema. Further examination was refused. Laboratory Results - last 24 hr 06/14/18 06/14/18 08:20 08:20 WBC 6.3 RBC 3.49 L Hgb 12.2 Hct 34.4 MCV 98.6 H MCH 35.0 H MCHC 35.5 RDW 12.5 Plt Count 177 MPV 9.9 Absolute Neuts (auto) 3.7 Neutrophils % 58.8 D Lymphocytes % 30.0 D Monocytes % 9.7 Eosinophils % 0.5 Basophils % 1.0 Nucleated RBC % 0 Sodium 139 Potassium 3.9 Chloride 105 Carbon Dioxide 29 Anion Gap 5 L BUN 9 Creatinine 0.8 Creat Clearance w eGFR 75.32 Random Glucose 84 Calcium 8.4 L Phosphorus 3.3 Magnesium 1.8 Active Medications Generic Name Dose Route Start Last Admin Trade Name Freq PRN Reason Stop Dose Admin Diphenhydramine HCl 25 mg 06/13/18 18:23 06/14/18 08:13 Benadryl - PO 25 mg Q6H PRN Administration FOR ITCHING Docusate Sodium 100 mg 06/13/18 22:00 06/14/18 06:09 Colace - PO 100 mg TID [facility] Administration Ferrous Sulfate 325 mg 06/14/18 10:00 06/14/18 09:54 Feosol - PO 325 mg DAILY [facility] Administration Folic Acid 1 mg 06/14/18 10:00 06/14/18 09:54 Folic Acid - PO 1 mg DAILY [facility] Administration Heparin Sodium (Porcine) 5,000 unit 06/13/18 22:00 06/14/18 06:09 Heparin - SQ 5,000 unit TID [facility] Administration Hydromorphone HCl 0 mg 06/14/18 13:00 Dilaudid Clamp Jig Assembler - REINSURANCE ACCOUNTANT 06/21/18 12:59 REINSURANCE ACCOUNTANT [facility] Protocol Lactated Ringer's 1,000 mls @ 75 mls/hr 06/13/18 20:30 06/14/18 06:07 Lactated Ringers Solution IV 75 mls/hr ASDIR [facility] Administration Nicotine 21 mg 06/14/18 10:00 06/14/18 09:52 Nicoderm Patch - TD 21 mg DAILY [facility] Administration Ondansetron HCl 4 mg 06/13/18 18:23 Zofran Injection IVPUSH Q6H PRN NAUSEA AND/OR VOMITING Polyethylene Glycol 17 gm 06/14/18 10:00 06/14/18 09:57 Miralax (For Daily Use) - PO 17 grams DAILY [facility] Administration Senna 2 tab 06/13/18 22:00 06/13/18 21:53 Senna - PO 2 tab HS [facility] Administration ASSESSMENT/PLAN: 53 y/o F w/ PMHx chronic lower back pain s/p L5/S1 surgery in 2011, presents with mechanical acute exacerbation of back pain 2/2 lifting heavy load. #acute back pain 2/2 R L2/L3 extrusion -POD 1 s/p R L2/L3 hemilaminotomy -IS -on REINSURANCE ACCOUNTANT, further pain management per neuroSx and anesthesia -PT/OT #FEN -LR @ 75 -monitor electrolytes -resume diet as per NeuroSx #PPx -DVT: heparin sq -GI: not indicated #code -full #dispo -cont to monitor on med/surg Visit type - Emergency Visit Emergency Visit: No - New Patient This patient is new to me today: No - Critical Care Critical Care patient: No
[2018-06-14] MEDS: PETROLATUM, WHITE 30 GM TUBE TP SCH (15:56)
--- NOTE | 2018-06-14 18:17 | PN ---
Teaching Attending Note Name of Resident: Trung Cuenca ATTENDING PHYSICIAN STATEMENT I saw and evaluated the patient. I reviewed the resident's note and discussed the case with the resident. I agree with the resident's findings and plan as documented. SUBJECTIVE: Complains of severe back pain radiating down both legs. No bladder/ bowel dysfunction. No fever/chills. Also complained of allergic reaction resulting in itching and lip swelling subsided with benadryl. OBJECTIVE: afebrile, hemodynamically stable. Last Vital Signs Temp Pulse Resp BP Pulse Ox 98.8 F 103 H 20 131/73 95 06/14/18 17:35 06/14/18 17:35 06/14/18 17:35 06/14/18 17:35 06/14/18 09:00 HEENT - Atraumatic, Nromocephalic. Heart - S1, S2, RRR Lungs Clear to auscultation Abdomen - Soft, non-tender Extremities - no calf tenderness Neuro - AAO x 3. Tone/Power normal. Laboratory Results - last 24 hr 06/14/18 06/14/18 08:20 08:20 WBC 6.3 RBC 3.49 L Hgb 12.2 Hct 34.4 MCV 98.6 H MCH 35.0 H MCHC 35.5 RDW 12.5 Plt Count 177 MPV 9.9 Absolute Neuts (auto) 3.7 Neutrophils % 58.8 D Lymphocytes % 30.0 D Monocytes % 9.7 Eosinophils % 0.5 Basophils % 1.0 Nucleated RBC % 0 Sodium 139 Potassium 3.9 Chloride 105 Carbon Dioxide 29 Anion Gap 5 L BUN 9 Creatinine 0.8 Creat Clearance w eGFR 75.32 Random Glucose 84 Calcium 8.4 L Phosphorus 3.3 Magnesium 1.8 Current Medications Generic Name Dose Route Start Last Admin Trade Name Freq PRN Reason Stop Dose Admin Diphenhydramine HCl 25 mg 06/13/18 18:23 06/14/18 08:13 Benadryl - PO 25 mg Q6H PRN Administration FOR ITCHING Docusate Sodium 100 mg 06/13/18 22:00 06/14/18 13:36 Colace - PO 100 mg TID [facility] Administration Ferrous Sulfate 325 mg 06/14/18 10:00 06/14/18 09:54 Feosol - PO 325 mg DAILY [facility] Administration Folic Acid 1 mg 06/14/18 10:00 06/14/18 09:54 Folic Acid - PO 1 mg DAILY [facility] Administration Heparin Sodium (Porcine) 5,000 unit 06/13/18 22:00 06/14/18 13:37 Heparin - SQ 5,000 unit TID [facility] Administration Hydromorphone HCl 10 mg 06/14/18 14:30 06/14/18 14:47 Dilaudid Child Welfare Assistant - TIMEKEEPING SUPERVISOR 06/21/18 12:59 10 mg TIMEKEEPING SUPERVISOR [facility] Administration Protocol Lactated Ringer's 1,000 mls @ 75 mls/hr 06/13/18 20:30 06/14/18 16:56 Lactated Ringers Solution IV 75 mls/hr ASDIR [facility] Administration Nicotine 21 mg 06/14/18 10:00 06/14/18 09:52 Nicoderm Patch - TD 21 mg DAILY [facility] Administration Ondansetron HCl 4 mg 06/13/18 18:23 Zofran Injection IVPUSH Q6H PRN NAUSEA AND/OR VOMITING Petrolatum 1 applic 06/14/18 15:45 06/14/18 15:56 Vaseline TP 1 applic DAILY [facility] Administration Polyethylene Glycol 17 gm 06/14/18 10:00 06/14/18 09:57 Miralax (For Daily Use) - PO 17 grams DAILY [facility] Administration Senna 2 tab 06/13/18 22:00 06/13/18 21:53 Senna - PO 2 tab HS [facility] Administration Home Medications Medication Instructions Recorded Naproxen/Esomeprazole Mag [Vimovo 1 each PO DAILY 06/09/18 Dr 500-20 mg Tablet] Oxycodone HCl/Acetaminophen 1 each PO DAILY 06/09/18 [Percocet 10-325 mg Tablet] ASSESSMENT AND PLAN: 53 year old female with chronic back pain s/p prior back surgery presented with intractable back pain with assoc radiculopathy. 1. Intractable Back Pain with Radiculopathy POD 1 s/p R HemilaminectomyL2/L3 with discectomy PT Started on TIMEKEEPING SUPERVISOR by Anesthesia Miralax added to Colace and Senna for bowel regimen 2. Elevated BP, likely secondary to uncontrolled pain. Started on TIMEKEEPING SUPERVISOR. Will monitor. DVT Px - Heparin SQ
--- NOTE | 2018-06-14 21:09 | PN ---
Progress Note (short form) - Note Progress Note: Patient seen in bed in no obvious distress, however, she relates that she is in pain. She reports sleeping well and having relief from her preoperative pain overnight. This morning, she reports that her pain was 2/10 on a visual analog scale. She was able to ambulate to the bathroom without the difficulties which she had prior to the surgery. When she was replacing her underwear, she noted a sudden paroxysm of pain and manifested a loud outburst. She informed me: "I felt like I did something...I felt like something got loose...the pain came back suddenly." The patient was medicated and CHALK CUTTER initiated. I explained that her facet capsule was noted to be torn and bone removal was minimized to prevent increasing her instability. I explained that the differential diagnosis for her sudden onset pain included: recurrent disc, muscle spasm, abatement of the anesthetic effect and instability. She recalls my original opinion that she may require a multilevel decompression and fusion and that this may still be the case, however, in accordance with her strongly stated preferences, I agreed to attempt treatment for her acute pain syndrome with a focal decompressive procedure. We agreed to monitor her clinical course with the new pain medication regimen and to re-evaluate her condition in the morning. All questions were answered.
[2018-06-14] MEDS: SENNOSIDES 8.6MG TABLET (FP) PO SCH (22:24)
[2018-06-15] MEDS: diphenhydrAMINE HCL 25 MG CAPSULE (FP) PO PRN (01:35)
[2018-06-15] MEDS: HEPARIN NA (PORCINE) 5,000 UNITS/ML 1ML VIAL SQ SCH ×3 (06:27→21:04)
[2018-06-15] MEDS: LACTATED RINGERS SOLUTION 1,000 ML IV SCH (06:27)
[2018-06-15] MEDS: DOCUSATE SODIUM 100 MG CAPSULE (FP) PO SCH ×2 (06:28→14:18)
[2018-06-15 08:04] LABS: BASO % 0.4 % (0-2.0); EOS % 0.7 % (0-4.5); HEMATOCRIT 32.7 % (32.4-45.2); HEMOGLOBIN 10.9 GM/dL (10.7-15.3); LYMPH % 18.2 % (8-40); MCH 32.7 pg (25.7-33.7); MCHC 33.3 g/dl (32.0-36.0); MEAN CELL VOLUME 98.1 fl (80-96); MEAN PLT VOLUME 10.5 fl (7.5-11.1); MONO % 8.6 % (3.8-10.2); NEUT % 72.1 % (42.8-82.8); PLATELET COUNT 146 K/MM3 (134-434); RBC 3.33 M/mm3 (3.60-5.2); RDW 12.4 % (11.6-15.6); WHITE BLOOD COUNT 7.5 K/mm3 (4.0-10.0)
--- NOTE | 2018-06-15 08:04 | PN ---
Progress Note (short form) - Note Progress Note: POD#2 Pt with complaints of pain to the right buttock. Occasional numbness to the right leg. Not passing flatus or BM. No nausea or emesis, tolerating her diet. Vital Signs Period Temp Pulse Resp BP Sys/Bocanegra Pulse Ox Last 24 Hr 97.8 F-100.2 F 64-103 16-21 106-158/52-88 95-96 CBC, BMP 06/15/18 07:00 06/15/18 07:00 GEN: A&0x3, NAD CV: RRR Lungs: CTA b/l ABD: soft, non-distended, mild LLQ tenderness. No rebound or guarding. Back: Aquacel dressing c/d/i. LE: 4/5 dorsi/plantar flexion RLE. LLE 5/5 dorsi/plantar flexion, no calf tenderness or swelling noted b/l. A/P: 53 yo female s/p right hemidurotomy of L2-L3 with discectomy Diet as tolerated, continue oral stool softners, dulcolax as needed Low grade temp overnight, incentive spirometer. No leukocytosis OOB and ambulate, PT Pain management via FISCAL ASSISTANT D/w Dr. Briones
[2018-06-15 08:31] LABS: ANION GAP 8 MMOL/L (8-16); BLOOD UREA NITROGEN 6 mg/dL (7-18); CALCIUM 7.9 mg/dL (8.5-10.1); CHLORIDE 102 mmol/L (98-107); CO2 27 mmol/L (21-32); CREATININE 0.7 mg/dL (0.55-1.3); GLUCOSE,RANDOM 89 mg/dL (74-106); MAGNESIUM 1.8 mg/dL (1.8-2.4); PHOSPHOROUS 3.7 mg/dL (2.5-4.9); POTASSIUM 3.6 mmol/L (3.5-5.1); SODIUM 137 mmol/L (136-145)
[2018-06-15] MEDS ORDERED: BISACODYL 10 MG SUPP.RECT PR PRN (08:51)
[2018-06-15] MEDS: FERROUS SO4 325 MG TABLET (FP) PO SCH (09:50)
[2018-06-15] MEDS: NICOTINE 21 MG/24 HOURS TOPICAL PATCH TD SCH (09:50)
[2018-06-15] MEDS: FOLIC ACID 1 MG TABLET (FP) PO SCH (09:50)
--- NOTE | 2018-06-15 11:50 | PATH ---
Surgical Pathology Report Patient Name: DESHAWN FRANCE [facility]. Rec. #: [id number] /Age/Gender: 1965 (Age: 53) / F Account: [id number] Location: [address] [place] [address] Taken: 06/13/2018 Received: 06/14/2018 Reported: 06/15/2018 Physicians: Kassie Velazquez M.D. Specimen(s) Received DISC L2-L3 Clinical History Intractable pain right L2-L3 instability Final Diagnosis INTERVERTEBRAL DISC, L2-3, PARTIAL EXCISION: PORTIONS OF INTERVERTEBRAL DISC. Electronically Signed Farhan Sanchez M.D. Gross Description Received in formalin labeled "disc L2-L3," is a 3.5 x 3.3 x 0.4 cm aggregate of gregory fragments of fibrocartilaginous tissue. A customer retention representative portion is submitted in one cassette. /06/14/201806/14/2018
--- NOTE | 2018-06-15 11:59 | PN ---
Physical Exam: SUBJECTIVE: Patient seen and examined at bedside. POD 2 s/p Rt hemilaminotomy L2 /3. Tolerated procedure well, continues to c/o pain and constipation. OBJECTIVE: Vital Signs Period Temp Pulse Resp BP Sys/Bocanegra Pulse Ox Last 24 Hr 98.4 F-100.2 F 67-103 16-21 106-158/52-88 96 GENERAL: A&Ox3, in mild distress HEENT: NC/AT, PERRLA, EOMI, MMM NECK: Trachea midline, full range of motion, supple. LUNGS: CTA b/l HEART: RRR no m/r/g ABDOMEN: +bs, soft, mild lower abd tenderness EXTREMITIES: 2+ pulses, warm, well-perfused, no edema. Further examination was refused. Laboratory Results - last 24 hr 06/15/18 06/15/18 07:00 07:00 WBC 7.5 RBC 3.33 L Hgb 10.9 Hct 32.7 MCV 98.1 H MCH 32.7 MCHC 33.3 RDW 12.4 Plt Count 146 MPV 10.5 Absolute Neuts (auto) 5.4 Neutrophils % 72.1 D Lymphocytes % 18.2 D Monocytes % 8.6 Eosinophils % 0.7 Basophils % 0.4 Nucleated RBC % 0 Sodium 137 Potassium 3.6 Chloride 102 Carbon Dioxide 27 Anion Gap 8 BUN 6 L Creatinine 0.7 Creat Clearance w eGFR 87.87 Random Glucose 89 Calcium 7.9 L Phosphorus 3.7 Magnesium 1.8 Active Medications Generic Name Dose Route Start Last Admin Trade Name Freq PRN Reason Stop Dose Admin Bisacodyl 10 mg 06/15/18 08:51 Dulcolax Suppository - [place] PRN PRN CONSTIPATION Diphenhydramine HCl 25 mg 06/13/18 18:23 06/15/18 01:35 Benadryl - PO 25 mg Q6H PRN Administration FOR ITCHING Docusate Sodium 300 mg 06/15/18 22:00 Colace - PO HS AICHA Docusate Sodium 100 mg 06/15/18 14:00 Colace - PO BID@0600,1400 AICHA Ferrous Sulfate 325 mg 06/14/18 10:00 06/15/18 09:50 Feosol - PO 325 mg DAILY AICHA Administration Folic Acid 1 mg 06/14/18 10:00 06/15/18 09:50 Folic Acid - PO 1 mg DAILY AICHA Administration Heparin Sodium (Porcine) 5,000 unit 06/13/18 22:00 06/15/18 06:27 Heparin - SQ 5,000 unit TID AICHA Administration Nicotine 21 mg 06/14/18 10:00 06/15/18 09:50 Nicoderm Patch - TD 21 mg DAILY AICHA Administration Ondansetron HCl 4 mg 06/13/18 18:23 Zofran Injection IVPUSH Q6H PRN NAUSEA AND/OR VOMITING Oxycodone HCl 5 mg 06/15/18 09:58 Roxicodone - PO Q4H PRN PAIN LEVEL 1-5 Oxycodone HCl 10 mg 06/15/18 09:58 Roxicodone - PO Q4H PRN PAIN LEVEL 6-10 Petrolatum 1 applic 06/14/18 15:45 06/14/18 15:56 Vaseline TP 1 applic DAILY AICHA Administration Polyethylene Glycol 17 gm 06/14/18 10:00 06/14/18 09:57 Miralax (For Daily Use) - PO 17 grams DAILY AICHA Administration Senna 2 tab 06/13/18 22:00 06/14/18 22:24 Senna - PO 2 tab HS AICHA Administration ASSESSMENT/PLAN: 53 y/o F w/ PMHx chronic lower back pain s/p L5/S1 surgery in 2011, presents with mechanical acute exacerbation of back pain 2/2 lifting heavy load. #acute back pain 2/2 R L2/L3 extrusion -POD 1 s/p R L2/L3 hemilaminotomy w/ discectomy -IS -transitioning off MORTGAGE SPECIALIST to PO Oxy per pain scale -PT/OT -strong bowel regimen #FEN -no IVF -monitor electrolytes -regular diet #PPx -DVT: heparin sq -GI: not indicated #code -full #dispo -cont to monitor on med/surg Visit type - Emergency Visit Emergency Visit: No - New Patient This patient is new to me today: No - Critical Care Critical Care patient: No
[2018-06-15] MEDS: oxyCODONE HCL 5 MG TABLET PO PRN ×3 (13:00→20:58)
[2018-06-15] MEDS: POLYETHYLENE GLYCOL 3350 119 GM BTL PO SCH (13:01)
[2018-06-15] MEDS: PETROLATUM, WHITE 30 GM TUBE TP SCH (14:18)
--- NOTE | 2018-06-15 14:24 | PN ---
Teaching Attending Note Name of Resident: Trung Cuenca ATTENDING PHYSICIAN STATEMENT I saw and evaluated the patient. I reviewed the resident's note and discussed the case with the resident. I agree with the resident's findings and plan as documented. SUBJECTIVE: Complains of ongoing severe back pain 9/10 radiating down R legs. No bladder/bowel dysfunction. No fever/chills. No BMs or flatus. OBJECTIVE: Tmax 100.2 overnight, Hemodynamically stable. Last Vital Signs Temp Pulse Resp BP Pulse Ox 98.6 F 83 18 144/81 98 06/15/18 13:38 06/15/18 13:38 06/15/18 13:38 06/15/18 13:38 06/15/18 09:00 Heart - S1, S2, RRR Lungs Clear to auscultation Abdomen - Soft, non-tender Extremities - no calf tenderness Neuro - AAO x 3. Tone/Power normal LEs. MS - Dressing in place on surgical site on back Laboratory Results - last 24 hr 06/15/18 06/15/18 07:00 07:00 WBC 7.5 RBC 3.33 L Hgb 10.9 Hct 32.7 MCV 98.1 H MCH 32.7 MCHC 33.3 RDW 12.4 Plt Count 146 MPV 10.5 Absolute Neuts (auto) 5.4 Neutrophils % 72.1 D Lymphocytes % 18.2 D Monocytes % 8.6 Eosinophils % 0.7 Basophils % 0.4 Nucleated RBC % 0 Sodium 137 Potassium 3.6 Chloride 102 Carbon Dioxide 27 Anion Gap 8 BUN 6 L Creatinine 0.7 Creat Clearance w eGFR 87.87 Random Glucose 89 Calcium 7.9 L Phosphorus 3.7 Magnesium 1.8 Current Medications Generic Name Dose Route Start Last Admin Trade Name Freq PRN Reason Stop Dose Admin Bisacodyl 10 mg 06/15/18 08:51 Dulcolax Suppository - [place] PRN PRN CONSTIPATION Diphenhydramine HCl 25 mg 06/13/18 18:23 06/15/18 01:35 Benadryl - PO 25 mg Q6H PRN Administration FOR ITCHING Docusate Sodium 300 mg 06/15/18 22:00 Colace - PO HS AICHA Docusate Sodium 100 mg 06/15/18 14:00 Colace - PO BID@0600,1400 AICHA Ferrous Sulfate 325 mg 06/14/18 10:00 06/15/18 09:50 Feosol - PO 325 mg DAILY AICHA Administration Folic Acid 1 mg 06/14/18 10:00 06/15/18 09:50 Folic Acid - PO 1 mg DAILY AICHA Administration Heparin Sodium (Porcine) 5,000 unit 06/13/18 22:00 06/15/18 06:27 Heparin - SQ 5,000 unit TID AICHA Administration Nicotine 21 mg 06/14/18 10:00 06/15/18 09:50 Nicoderm Patch - TD 21 mg DAILY AICHA Administration Ondansetron HCl 4 mg 06/13/18 18:23 Zofran Injection IVPUSH Q6H PRN NAUSEA AND/OR VOMITING Oxycodone HCl 5 mg 06/15/18 09:58 Roxicodone - PO Q4H PRN PAIN LEVEL 1-5 Oxycodone HCl 10 mg 06/15/18 09:58 06/15/18 13:00 Roxicodone - PO 10 mg Q4H PRN Administration PAIN LEVEL 6-10 Petrolatum 1 applic 06/14/18 15:45 06/14/18 15:56 Vaseline TP 1 applic DAILY AICHA Administration Polyethylene Glycol 17 gm 06/14/18 10:00 06/15/18 13:01 Miralax (For Daily Use) - PO 17 grams DAILY AICHA Administration Senna 2 tab 06/13/18 22:00 06/14/18 22:24 Senna - PO 2 tab HS AICHA Administration ASSESSMENT AND PLAN: 53 year old female smoker with chronic back pain s/p prior back surgery presented with intractable back pain and assoc radiculopathy. 1. Intractable Back Pain with Radiculopathy POD 2 s/p R HemilaminectomyL2/L3 with discectomy PT Transition from BELT WEAVER to oral oxycodone Enema in addition to Miralax, Colace and Senna for bowel regimen 2. Tobacco Dependence. Counselled. Given Nicotine patch. DVT Px - Heparin SQ
[2018-06-15] MEDS: SENNOSIDES 8.6MG TABLET (FP) PO SCH (20:59)
[2018-06-15] MEDS ORDERED: DOCUSATE SODIUM 100 MG CAPSULE (FP) PO SCH (22:00)
[2018-06-16] MEDS: oxyCODONE HCL 5 MG TABLET PO PRN ×6 (00:55→21:57)
[2018-06-16] MEDS: HEPARIN NA (PORCINE) 5,000 UNITS/ML 1ML VIAL SQ SCH ×3 (06:04→21:57)
[2018-06-16] MEDS: DOCUSATE SODIUM 100 MG CAPSULE (FP) PO SCH ×2 (06:04→17:03)
[2018-06-16] MEDS ORDERED: MAGNESIUM HYDROX 2400MG/30ML ORAL SUSPENSION 30 ML CUP PO PRN (07:51)
[2018-06-16 07:55] LABS: BASO % 0.3 % (0-2.0); EOS % 1.6 % (0-4.5); HEMATOCRIT 33.6 % (32.4-45.2); HEMOGLOBIN 11.1 GM/dL (10.7-15.3); LYMPH % 29.6 % (8-40); MCH 32.6 pg (25.7-33.7); MEAN CELL VOLUME 98.9 fl (80-96); MEAN PLT VOLUME 10.4 fl (7.5-11.1); MONO % 12.5 % (3.8-10.2); PLATELET COUNT 153 K/MM3 (134-434); RDW 12.4 % (11.6-15.6); WHITE BLOOD COUNT 5.5 K/mm3 (4.0-10.0)
[2018-06-16 08:06] LABS: ANION GAP 7 MMOL/L (8-16); BLOOD UREA NITROGEN 6 mg/dL (7-18); CALCIUM 8.2 mg/dL (8.5-10.1); CHLORIDE 103 mmol/L (98-107); CO2 29 mmol/L (21-32); CREATININE 0.7 mg/dL (0.55-1.3); GLUCOSE,RANDOM 84 mg/dL (74-106); PHOSPHOROUS 3.3 mg/dL (2.5-4.9); POTASSIUM 4.4 mmol/L (3.5-5.1); SODIUM 138 mmol/L (136-145)
--- NOTE | 2018-06-16 08:39 | PN ---
Progress Note (short form) - Note Progress Note: POD#3 Pt pain is better today. Off of her EXPERIENTIAL THERAPIST and using oral pain medications for pain control. OOB and ambulated in the hallway x2 and to the restroom. No nausea or emesis, although she is waiting to have a bowel movement. She started to pass flatus yesterday. Has had a history of constipation and has referral to see a sea air land officer. Vital Signs Period Temp Pulse Resp BP Sys/Bocanegra Pulse Ox Last 24 Hr 98 F-99.5 F 73-90 2-20 123-144/75-89 98-98 GEN: A&0x3, NAD ABD: Soft, non-distended, mild LLQ tendneress, no guarding. Back: Dressing c/d/i with aquacel LE: RLE 4/5 plantar flexion 5/5 dorsi flexion. LLE 5/5 dorsi/plantar flexion CBC, BMP 06/16/18 07:00 06/16/18 07:00 A/P: 53 yo female s/p right naomi durotomy with disectomy L2-L3 Diet as tolerated, awaiting bowel movement but passing flatus. Added Mil of magnesia to stool softners(colace/senna/ducolax suppository) Pt now managing pain with oral pain meds Continue oob and ambulate D/w Dr. Briones Discharge instructions and wound care follow-up completed for time of discharge
[2018-06-16] MEDS ORDERED: PT OWN MED DRAWER 7, Y5N ONE (09:36)
[2018-06-16] MEDS: FOLIC ACID 1 MG TABLET (FP) PO SCH (09:58)
[2018-06-16] MEDS: NICOTINE 21 MG/24 HOURS TOPICAL PATCH TD SCH (09:58)
[2018-06-16] MEDS: FERROUS SO4 325 MG TABLET (FP) PO SCH (09:58)
[2018-06-16] MEDS: POLYETHYLENE GLYCOL 3350 119 GM BTL PO SCH ×2 (11:47→21:57)
--- NOTE | 2018-06-16 14:29 | DS ---
Physical Exam: SUBJECTIVE: Patient seen and examined at bedside. POD 3 s/p Rt hemilaminotomy L2 /3. Tolerated procedure well, post-surgical pain controlled, continues to complain of constipation. OBJECTIVE: Vital Signs Period Temp Pulse Resp BP Sys/Bocanegra Pulse Ox Last 24 Hr 98 F-99.3 F 73-85 2-21 129-149/70-99 97-98 PHYSICAL EXAM GENERAL: A&Ox3, in mild distress HEENT: NC/AT, PERRLA, EOMI, MMM NECK: Trachea midline, full range of motion, supple. LUNGS: CTA b/l HEART: RRR no m/r/g ABDOMEN: +bs, soft, mild lower abd tenderness EXTREMITIES: 2+ pulses, warm, well-perfused, no edema. Further examination was refused. LABS Laboratory Results - last 24 hr 06/16/18 06/16/18 07:00 07:00 WBC 5.5 RBC 3.40 L Hgb 11.1 Hct 33.6 MCV 98.9 H MCH 32.6 MCHC 33.0 RDW 12.4 Plt Count 153 MPV 10.4 Absolute Neuts (auto) 3.1 Neutrophils % 56.0 D Lymphocytes % 29.6 D Monocytes % 12.5 H Eosinophils % 1.6 D Basophils % 0.3 Nucleated RBC % 0 Sodium 138 Potassium 4.4 Chloride 103 Carbon Dioxide 29 Anion Gap 7 L BUN 6 L Creatinine 0.7 Creat Clearance w eGFR 87.87 Random Glucose 84 Calcium 8.2 L Phosphorus 3.3 Magnesium 2.0 HOSPITAL COURSE: Date of Admission:06/11/18 Patient is a 53 y/o F w/ PMHx chronic lower back pain s/p L5/S1 surgery in 2011 , presenting with mechanical acute exacerbation of back pain 2/2 lifting heavy load. Lumbar spinal MRI showed multiple deficiencies from L2-S1 levels, most acutely an extrusion of the R L2-L3 disc compressing the L2 nerve root. Neurosurgery was consulted and the patient underwent L2/L3 hemilaminotomy with discectomy with Dr. Briones on 06/13/18. Procedure was completed without complication. Patient was afterwards treated with dilaudid via PAYROLL BOOKKEEPER and transitioned to PO pain medication with a strong bowel regimen. She complained of constipation each day following surgery. On POD3, she requested inpatient evaluation by gastroenterology and was offered flat and upright AXR to assess retention. She declined this study d/t 2 individuals being scheduled ahead of her. GI did not find any indication for inpatient colonoscopy despite the patient's wish to undergo colonoscopy while hospitalized. She did report a large bowel movement to her nurse on POD3. She was discharged to SNF for physical rehabilitation with instructions for ongoing PO pain management and post-operative followup with neurosurgery as well as outpatient followup with gastroenterology. Date of Discharge: 06/16/18 Minutes to complete discharge: 40 Discharge Summary Reason For Visit: INTRACTABLE PAIN Current Active Problems Intractable pain (Acute) S/P laminectomy (Acute) Condition: Stable - Instructions Diet, Activity, Other Instructions: MEDICAL INSTRUCTIONS: You were hospitalized for worsening back pain caused by a herniated disc. You underwent neurosurgery with Dr. Briones to correct the problem. You are being discharged to rehabilitation to help you regain your strength and functionality. Instructions are provided for ongoing medications to the rehabilitation facility. Please follow up with Dr. Briones in 1-2 weeks. Additionally, you experienced prolonged constipation while hospitalized. You declined to have imaging studies done while an inpatient. We have provided a referral for outpatient followup with gastroenterology (Dr. Patricio) in the next 1-2 weeks. If you experience new or worsening back pain, focal weakness or changes in sensation, fever, chills, loss of consciousness, or any other new or concerning symptoms, please return to the Emergency Department. MEDICATION INSTRUCTIONS FOR SNF STAFF: Please provide oxycodone 5mg q4h PRN for pain 6-10 and tylenol 650mg q4h PRN for pain 1-5. Please provide senna, colace, and miralax daily PRN for constipation. SURGICAL INSTRUCTIONS: Post Operative Instructions Physical Activity Resume your normal everyday activity as tolerated. No heavy lifting or exercise until seen by your surgeon. You may walk unlimited amounts and climb stairs. Do not operate a vehicle while taking narcotic medication. Wound Care Keep your incision clean, dry and covered at all times. Apply an occlusive dressing (Saran wrap or Tegaderm) when showering to avoid getting your incision wet. Do not submerge incision or apply ointments or creams. The juan will be removed in the office in 10-14 days post-op. Diet There are no dietary restrictions. Eat healthy, high-fiber foods. Drink 6-8 glasses of liquid each day. This will assist in keeping your bowels regular. Pain Management You may take Tylenol or acetaminophen. Any pain prescription medication ordered should be taken as prescribed for moderate to severe pain. Call Dr Negrete for any of the following: Severe pain not relieved by medication Fever of 101 or higher Excessive bleeding or drainage on dressing Inability to urinate Any chest pain or shortness of breath, seek Emergency Care. Call the office to confirm a post-operative appointment for 2-3 weeks post-op Brett Briones MD [facility] [address] [place] [address] Referrals: Brett Briones MD, FAANS [Staff Physician] - Disposition: HALF-WAY FACILITY - Home Medications Comprehensive Discharge Medication List: Ambulatory Orders Acetaminophen 650 mg PO Q4H PRN #1 capsule 06/16/18 Docusate Sodium [Colace -] 300 mg PO HS capsule 06/16/18 Ferrous Sulfate [Feosol] 325 mg PO DAILY ud 06/16/18 Folic Acid - 1 mg PO DAILY tablet 06/16/18 Magnesium Hydrox 2400MG/30Ml [Milk of Magnesia -] 30 ml PO DAILY PRN cup Nicotine Patch [Nicoderm Patch -] 21 mg TD DAILY patch 06/16/18 Polyethylene Glycol 3350 [Miralax 119 gm Btl -] 17 gm PO DAILY bottle 06/16/18 Sennosides [Senna -] 2 tab PO HS tablet 06/16/18 oxyCODONE HCL [Roxicodone -] 5 mg PO Q4H PRN tablet MDD 30 06/16/18 This patient is new to me today: No Emergency Visit: No Critical Care patient: No - Discharge Referral Referred to [facility] Med P.C.: No
[2018-06-16] MEDS: diphenhydrAMINE HCL 25 MG CAPSULE (FP) PO PRN ×2 (14:45→22:02)
[2018-06-16] MEDS: PETROLATUM, WHITE 30 GM TUBE TP SCH (15:20)
--- NOTE | 2018-06-16 17:03 | CON.GI ---
Consult Consult Specialty:: GI Referred by:: hospitalist service Reason for Consultation:: constipation - History of Present Illness Chief Complaint: back pain, constipation History of Present Illness: 53F admitted 06/09/18 for evaluation of worsening lower back pain. She had initial L-Spine surgery in 2011. She underwent right hemilaminectomy and discectomy 06/13/18. Complains of no BM for several days. Complains of chronic constipation predating back surgery. Was admitted on percocet and vimovo. Was maintained on ? fentanyl patch, dilaudid WELL PULLER and continued oral opiate analgesia during the course of her stay. She is on PO iron. She has been given miralax, colace and was started on senns. She states having had a colonoscopy at [facility] secondary to fecal incontinence and she was told it was a "normally aging colon". No polyps were removed. She complains of chronic "digestive issues". She complains of chronic nausea that improves after meals. She denies vomiting. She believes that she had an unrevealing upper endoscopy 3- 4 years ago in [place]. There is no family history of colorectal cancer or other GI malignancy. There has been no rectal bleeding / diarrhea. She denies fevers/chills. - History Source History Provided By: Patient, Medical Record - Past Medical History Cardio/Vascular: Yes: HTN ...: No Musculoskeletal: Yes: Chronic low back pain, Other (Discogenic disease of the lumbar spine) - Past Surgical History Past Surgical History: Yes: Tubal Ligation (BTL) Additional Surgical History: Lumbar spine surgery 2011, right hemilaminectomy and discectomy 06/13/18 - Alcohol/Substance Use Hx Alcohol Use: No History of Substance Use: reports: Marijuana (Medicinal marijuana for pain) - Smoking History Smoking history: Current every day smoker Have you smoked in the past 12 months: Yes Aproximately how many cigarettes per day: 10 - Social History Usual Living Arrangement: Alone ADL: Independent 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 Place of : [facility] History of Recent Travel: No Home Medications - Allergies Allergies/Adverse Reactions: Allergies Allergy/AdvReac Type Severity Reaction Status Date / Time lactase [From Dairy Aid] Allergy Intermediate Verified 06/10/18 08:23 tramadol Allergy Intermediate Hives Verified 06/09/18 10:42 apple Allergy Mild Itching Verified 06/15/18 17:08 egg Allergy Mild Verified 06/15/18 16:59 jose Allergy Mild Verified 06/15/18 17:06 orange (food color) Allergy Mild Verified 06/10/18 08:23 pear Allergy Mild Itching Verified 06/15/18 17:07 pineapple Allergy Mild Itching Verified 06/15/18 17:07 red (food color) Allergy Mild Verified 06/10/18 08:23 wheat Allergy Mild Verified 06/15/18 16:58 - Home Medications Home Medications: Ambulatory Orders Acetaminophen 650 mg PO Q4H PRN #1 capsule 06/16/18 Docusate Sodium [Colace -] 300 mg PO HS capsule 06/16/18 Ferrous Sulfate [Feosol] 325 mg PO DAILY ud 06/16/18 Folic Acid - 1 mg PO DAILY tablet 06/16/18 Magnesium Hydrox 2400MG/30Ml [Milk of Magnesia -] 30 ml PO DAILY PRN cup Nicotine Patch [Nicoderm Patch -] 21 mg TD DAILY patch 06/16/18 Polyethylene Glycol 3350 [Miralax 119 gm Btl -] 17 gm PO DAILY bottle 06/16/18 Sennosides [Senna -] 2 tab PO HS tablet 06/16/18 oxyCODONE HCL [Roxicodone -] 5 mg PO Q4H PRN tablet MDD 30 06/16/18 Family Disease History - Family Disease History Family Disease History: Other: Father (Unknown med hx.), Mother (: 74: MRSA wound infection), Brother (3, 1 with etoh cirrhosis, 1 w/ prostate cancer, 1 w/ cholecystectomy secondary to stones), Sister (3, healthy: 1 with cholecystectomy secondary to stones), Son (2, healthy), Daughter (1, healthy) Other Family History: No family history of colorectal cancer or other GI malignancy Review of Systems - Review of Systems Constitutional: denies: Fever, Loss of Appetite, Unintentional Wgt. Loss Cardiovascular: denies: Chest Pain Respiratory: denies: Cough, SOB Gastrointestinal: reports: Abdominal Pain, Constipation, Nausea. denies: Diarrhea, Melena, Rectal Bleeding, Vomiting Musculoskeletal: reports: Back Pain Physical Exam-GI Vital Signs: Vital Signs Temperature 98.7 F 06/16/18 13:46 Pulse Rate 85 06/16/18 13:46 Respiratory Rate 21 H 06/16/18 13:46 Blood Pressure 149/99 06/16/18 13:46 O2 Sat by Pulse Oximetry (%) 97 06/16/18 09:00 Constitutional: Yes: Calm Eyes: No: Sclera Icterus Cardiovascular: Yes: Regular Rate and Rhythm. No: Murmur Respiratory: Yes: CTA Bilaterally Gastrointestinal Inspection: Yes: Scars (Small midline low pelvic surgical scar) ...Auscultate: Yes: Normoactive Bowel Sounds ...Palpate: Yes: Soft, Tenderness (marked tenderness to palpation in the RUQ with + moseley's sign). No: Hepatomegaly, Splenomegaly ...Percussion: No: Tympanitic ...Rectal Exam: Yes: Other (Profile Saw Operator present: Small amount of firm gregory stool in rectal vault, more palpated proximal to distal edge of finger tip.) Edema: No (No LE edema) Neurological: Yes: Alert Labs: CBC, BMP 06/16/18 07:00 06/16/18 07:00 INR, PTT INR 0.96 (0.83-1.09) 06/12/18 06:00 Hepatic Panel Total Bilirubin 0.9 mg/dL (0.2-1) 06/09/18 12:43 AST 12 U/L (15-37) L 06/09/18 12:43 ALT 16 U/L (13-61) 06/09/18 12:43 Alkaline Phosphatase 91 U/L (45-117) 06/09/18 12:43 Albumin 4.1 g/dl (3.4-5.0) 06/09/18 12:43 Imaging - Results X-ray: Image Reviewed (Not officially read. No ileus patten. + fecal retention) Problem List - Problems (1) Constipation Assessment/Plan: Likely multifactorial: Describes a chronic component predating spinal surgery, involvement of lumbar parasympathetics given discogenic disease as well as chronic opiate pain regimen that has during admission been escalated. high up fecal impaction palpated on rectal exam: Advise: Stopping colace, likely ineffective MiraLAX 17g PO TID Continue senna 2 tabs hs Chech TSH. Serum calcium has been low. Should be assessed if this is accurate and evaluated if it is Code(s): K59.00 - CONSTIPATION, UNSPECIFIED (2) Right upper quadrant pain Assessment/Plan: Noted on physical exam with + moseley's sign - Changed to clear liquids - Ordered hepatic panel - Ordered abdominal US - If ABD US unrevealing and severe pain persists, CT scan of the abdomen and pelvis with PO/IV contrast - Ordered protonix 20mg PO daily for [address] Pineda will be covering This evening and through the weekend Code(s): R10.11 - RIGHT UPPER QUADRANT PAIN
--- NOTE | 2018-06-16 19:17 | PN ---
Teaching Attending Note Name of Resident: Trung Cuenca ATTENDING PHYSICIAN STATEMENT I saw and evaluated the patient. I reviewed the resident's note and discussed the case with the resident. I agree with the resident's findings and plan as documented. SUBJECTIVE: Back pain significantly improved, ambulating well. Complains of chronic constipation - no abdominal pain. No fever/chills. No BMs or flatus. OBJECTIVE: Tmax 99.2, Hemodynamically stable. Last Vital Signs Temp Pulse Resp BP Pulse Ox 99.9 F H 91 H 20 159/94 97 06/16/18 18:42 06/16/18 18:42 06/16/18 18:42 06/16/18 18:42 06/16/18 09:00 Heart - S1, S2, RRR Lungs Clear to auscultation Abdomen - Soft, non-tender. Bowel Sounds normal. Extremities - no calf tenderness Neuro - AAO x 3. Tone/Power normal LEs. MS - Dressing in place on surgical site on back Laboratory Results - last 24 hr 06/16/18 06/16/18 07:00 07:00 WBC 5.5 RBC 3.40 L Hgb 11.1 Hct 33.6 MCV 98.9 H MCH 32.6 MCHC 33.0 RDW 12.4 Plt Count 153 MPV 10.4 Absolute Neuts (auto) 3.1 Neutrophils % 56.0 D Lymphocytes % 29.6 D Monocytes % 12.5 H Eosinophils % 1.6 D Basophils % 0.3 Nucleated RBC % 0 Sodium 138 Potassium 4.4 Chloride 103 Carbon Dioxide 29 Anion Gap 7 L BUN 6 L Creatinine 0.7 Creat Clearance w eGFR 87.87 Random Glucose 84 Calcium 8.2 L Phosphorus 3.3 Magnesium 2.0 Current Medications Generic Name Dose Route Start Last Admin Trade Name Freq PRN Reason Stop Dose Admin Bisacodyl 10 mg 06/15/18 08:51 Dulcolax Suppository - [place] PRN PRN CONSTIPATION Diphenhydramine HCl 25 mg 06/13/18 18:23 06/16/18 14:45 Benadryl - PO 25 mg Q6H PRN Administration FOR ITCHING Docusate Sodium 100 mg 06/15/18 14:00 06/16/18 17:03 Colace - PO Not Given BID@0600,1400 AICHA Ferrous Sulfate 325 mg 06/14/18 10:00 06/16/18 09:58 Feosol - PO 325 mg DAILY AICHA Administration Folic Acid 1 mg 06/14/18 10:00 06/16/18 09:58 Folic Acid - PO 1 mg DAILY AICHA Administration Heparin Sodium (Porcine) 5,000 unit 06/13/18 22:00 06/16/18 17:34 Heparin - SQ Not Given TID AICHA Magnesium Hydroxide 30 ml 06/16/18 07:51 Milk Of Magnesia - PO DAILY PRN CONSTIPATION Nicotine 21 mg 06/14/18 10:00 06/16/18 09:58 Nicoderm Patch - TD 21 mg DAILY AICHA Administration Ondansetron HCl 4 mg 06/13/18 18:23 Zofran Injection IVPUSH Q6H PRN NAUSEA AND/OR VOMITING Oxycodone HCl 5 mg 06/15/18 09:58 06/16/18 17:37 Roxicodone - PO 5 mg Q4H PRN Administration PAIN LEVEL 1-5 Oxycodone HCl 10 mg 06/15/18 09:58 06/16/18 15:00 Roxicodone - PO 10 mg Q4H PRN Administration PAIN LEVEL 6-10 Pantoprazole Sodium 20 mg 06/17/18 10:00 Protonix - PO DAILY [facility] Petrolatum 1 applic 06/14/18 15:45 06/16/18 15:20 Vaseline TP Not Given DAILY [facility] Polyethylene Glycol 17 gm 06/16/18 22:00 Miralax (For Daily Use) - PO TID AICHA Senna 2 tab 06/13/18 22:00 06/15/18 20:59 Senna - PO 2 tab HS AICHA Administration ASSESSMENT AND PLAN: 53 year old female smoker with chronic back pain s/p prior back surgery presented with intractable back pain and assoc radiculopathy. 1. Intractable Back Pain with Radiculopathy POD 3 s/p R HemilaminectomyL2/L3 with discectomy Progressing well with PT Transitioned from PALLIATIVE CARE NURSE to oral oxycodone prn 2. Chronic Constipation Enema in addition to Miralax, MOM, Colace and Senna for constipation. Patient requested GI consult for Chronic constipation - evaluated by GI with recommendation for AXR. Abdominal US and LFTs requested by GI. 3. Tobacco Dependence. Counselled. Given Nicotine patch. DVT Px - Heparin SQ
[2018-06-16 19:56] LABS: ALBUMIN 3.2 g/dl (3.4-5.0); BILIRUBIN,DIRECT 0.2 mg/dL (0.0-0.2); BILIRUBIN,TOTAL 0.6 mg/dL (0.2-1); TOT PROT 6.5 g/dl (6.4-8.2)
[2018-06-16] MEDS: SENNOSIDES 8.6MG TABLET (FP) PO SCH (21:57)
[2018-06-17] MEDS: oxyCODONE HCL 5 MG TABLET PO PRN ×4 (01:41→20:02)
[2018-06-17] MEDS: HEPARIN NA (PORCINE) 5,000 UNITS/ML 1ML VIAL SQ SCH ×3 (05:30→21:06)
[2018-06-17] MEDS: POLYETHYLENE GLYCOL 3350 119 GM BTL PO SCH ×3 (05:33→21:06)
[2018-06-17 08:35] LABS: BASO % 0.7 % (0-2.0); EOS % 1.6 % (0-4.5); HEMATOCRIT 35.2 % (32.4-45.2); HEMOGLOBIN 11.6 GM/dL (10.7-15.3); LYMPH % 27.6 % (8-40); MCH 32.5 pg (25.7-33.7); MCHC 32.9 g/dl (32.0-36.0); MEAN CELL VOLUME 98.8 fl (80-96); MEAN PLT VOLUME 10.6 fl (7.5-11.1); MONO % 11.5 % (3.8-10.2); NEUT % 58.6 % (42.8-82.8); PLATELET COUNT 184 K/MM3 (134-434); RBC 3.57 M/mm3 (3.60-5.2); RDW 12.6 % (11.6-15.6); WHITE BLOOD COUNT 5.4 K/mm3 (4.0-10.0)
[2018-06-17 09:12] LABS: ALBUMIN 3.1 g/dl (3.4-5.0); ALK PHOS 66 U/L (45-117); ANION GAP 7 MMOL/L (8-16); BILIRUBIN,TOTAL 1.1 mg/dL (0.2-1); BLOOD UREA NITROGEN 4 mg/dL (7-18); CALCIUM 8.6 mg/dL (8.5-10.1); CHLORIDE 104 mmol/L (98-107); CO2 27 mmol/L (21-32); CREATININE 0.8 mg/dL (0.55-1.3); GLUCOSE,RANDOM 89 mg/dL (74-106); POTASSIUM 4.3 mmol/L (3.5-5.1); SGOT/AST 12 U/L (15-37); SGPT/ALT 12 U/L (13-61); SODIUM 138 mmol/L (136-145); TOT PROT 6.7 g/dl (6.4-8.2)
--- NOTE | 2018-06-17 09:17 | PN ---
Physical Exam: SUBJECTIVE: unable to obtain as patient refuses to speak with the care team. OBJECTIVE: Vital Signs Period Temp Pulse Resp BP Sys/Bocanegra Pulse Ox Last 24 Hr 98.7 F-99.9 F 75-91 20-21 126-160/70-99 97 GENERAL: Unable to perform physical exam as patient refuses. Laboratory Results - last 24 hr 06/16/18 06/17/18 06/17/18 18:30 07:45 07:45 WBC 5.4 RBC 3.57 L Hgb 11.6 Hct 35.2 MCV 98.8 H MCH 32.5 MCHC 32.9 RDW 12.6 Plt Count 184 D MPV 10.6 Absolute Neuts (auto) 3.2 Neutrophils % 58.6 Lymphocytes % 27.6 Monocytes % 11.5 H Eosinophils % 1.6 Basophils % 0.7 Nucleated RBC % 0 Sodium 138 Potassium 4.3 Chloride 104 Carbon Dioxide 27 Anion Gap 7 L BUN 4 L Creatinine 0.8 Creat Clearance w eGFR 75.32 Random Glucose 89 Calcium 8.6 Total Bilirubin 0.6 1.1 H Direct Bilirubin 0.2 AST 12 L 12 L ALT 14 12 L Alkaline Phosphatase 66 66 Total Protein 6.5 6.7 Albumin 3.2 L 3.1 L Active Medications Generic Name Dose Route Start Last Admin Trade Name Freq PRN Reason Stop Dose Admin Diphenhydramine HCl 25 mg 06/13/18 18:23 06/16/18 22:02 Benadryl - PO 25 mg Q6H PRN Administration FOR ITCHING Ferrous Sulfate 325 mg 06/14/18 10:00 06/16/18 09:58 Feosol - PO 325 mg DAILY AICHA Administration Folic Acid 1 mg 06/14/18 10:00 06/16/18 09:58 Folic Acid - PO 1 mg DAILY AICHA Administration Heparin Sodium (Porcine) 5,000 unit 06/13/18 22:00 06/17/18 05:30 Heparin - SQ Not Given TID AICHA Magnesium Hydroxide 30 ml 06/16/18 07:51 Milk Of Magnesia - PO DAILY PRN CONSTIPATION Nicotine 21 mg 06/14/18 10:00 06/16/18 09:58 Nicoderm Patch - TD 21 mg DAILY AICHA Administration Ondansetron HCl 4 mg 06/13/18 18:23 Zofran Injection IVPUSH Q6H PRN NAUSEA AND/OR VOMITING Oxycodone HCl 5 mg 06/15/18 09:58 06/17/18 05:33 Roxicodone - PO 5 mg Q4H PRN Administration PAIN LEVEL 1-5 Pantoprazole Sodium 20 mg 06/17/18 10:00 Protonix - PO DAILY AICHA Petrolatum 1 applic 06/14/18 15:45 06/16/18 15:20 Vaseline TP Not Given DAILY AICHA Polyethylene Glycol 17 gm 06/16/18 22:00 06/17/18 05:33 Miralax (For Daily Use) - PO 17 gm TID AICHA Administration Senna 2 tab 06/13/18 22:00 06/16/18 21:57 Senna - PO 2 tab HS AICHA Administration ASSESSMENT/PLAN: The patient is a 53 yo f w/ PMH chronic back pain s/p prior back surgery presented with intractable back pain and assoc radiculopathy. #Severe back pain -POD 4 s/p R HemilaminectomyL2/L3 with discectomy w/ Dr. Brett Briones -Pain control decresed from Oxy 5mg q4h to q6h -continued PT #Chronic Constipation -Patient on bowel regimen, now having BMs as per nursing staff -GI consult requested; AXR, abd US and LFTs ordered -abd US shows fatty liver infiltration and LFTs WNL -AXR shows constipation w/o obstruction or free air. #FEN -no fluids indicated -lytes WNL -regular diet #Prophy -heparin SQ 5k units q8h #dispo -stable for discharge -patient wishes to speak with a GI specialist prior to leaving Visit type - Emergency Visit Emergency Visit: Yes ED Registration Date: 06/11/18 Care time: The patient presented to the Emergency Department on the above date and was hospitalized for further evaluation of their emergent condition. - New Patient This patient is new to me today: Yes Date on this admission: 06/18/18 - Critical Care Critical Care patient: No - Discharge Referral Referred to [facility] Med P.C[facility] No
[2018-06-17] MEDS: NICOTINE 21 MG/24 HOURS TOPICAL PATCH TD SCH (09:46)
[2018-06-17] MEDS: PANTOPRAZOLE 20 MG TABLET (FP) PO SCH (09:46)
[2018-06-17] MEDS: FOLIC ACID 1 MG TABLET (FP) PO SCH (09:46)
[2018-06-17] MEDS: FERROUS SO4 325 MG TABLET (FP) PO SCH (09:46)
[2018-06-17] MEDS: PETROLATUM, WHITE 30 GM TUBE TP SCH (10:01)
--- NOTE | 2018-06-17 14:29 | PN.GI ---
GI Progress Note Subjective: has BM today, no abdominal pain, ABd ultrasound-- fatty liver, on codeine for chronic back pain - Objective Vital Signs: Vital Signs Temperature 99.2 F 06/17/18 10:00 Pulse Rate 70 06/17/18 10:00 Respiratory Rate 20 06/17/18 10:00 Blood Pressure 129/65 06/17/18 10:00 O2 Sat by Pulse Oximetry (%) 100 06/17/18 09:00 Constitutional: Well Nourished Eyes: Yes: Conjunctiva Clear HENT: Yes: Atraumatic Neck: Yes: Supple Cardiovascular: Yes: Regular Rate and Rhythm Respiratory: Yes: CTA Bilaterally ...Palpate: Yes: Soft, Tenderness, Epigastium. No: Firm/Rigid, Guarding, Hepatomegaly, Mass, Pulsatile Mass, Splenomegaly Labs: CBC, BMP 06/17/18 07:45 06/17/18 07:45 INR, PTT INR 0.96 (0.83-1.09) 06/12/18 06:00 Problem List - Problems (1) Dyspepsia Assessment/Plan: R> Famotidine 40mg daily Code(s): R10.13 - EPIGASTRIC PAIN (2) Constipation Assessment/Plan: opiod induced R> continue senna and Miralax Code(s): K59.00 - CONSTIPATION, UNSPECIFIED (3) Right upper quadrant pain Assessment/Plan: secondary to fatty liver R> patient made aware further work-up as an outpatient Code(s): R10.11 - RIGHT UPPER QUADRANT PAIN
--- NOTE | 2018-06-17 15:53 | PN ---
Teaching Attending Note Name of Resident: Tima Wasserman ATTENDING PHYSICIAN STATEMENT I saw and evaluated the patient. I reviewed the resident's note and discussed the case with the resident. I agree with the resident's findings and plan as documented. SUBJECTIVE: Back pain significantly improved, ambulating well. Passing BMs. Verbally abusive. OBJECTIVE: Afebrile, Hemodynamically stable. Last Vital Signs Temp Pulse Resp BP Pulse Ox 98.6 F 83 20 123/71 100 06/17/18 14:24 06/17/18 14:24 06/17/18 14:24 06/17/18 14:24 06/17/18 09:00 Declines medical interview or physical exam Laboratory Results - last 24 hr 06/16/18 06/17/18 06/17/18 18:30 07:45 07:45 WBC 5.4 RBC 3.57 L Hgb 11.6 Hct 35.2 MCV 98.8 H MCH 32.5 MCHC 32.9 RDW 12.6 Plt Count 184 D MPV 10.6 Absolute Neuts (auto) 3.2 Neutrophils % 58.6 Lymphocytes % 27.6 Monocytes % 11.5 H Eosinophils % 1.6 Basophils % 0.7 Nucleated RBC % 0 Sodium 138 Potassium 4.3 Chloride 104 Carbon Dioxide 27 Anion Gap 7 L BUN 4 L Creatinine 0.8 Creat Clearance w eGFR 75.32 Random Glucose 89 Calcium 8.6 Total Bilirubin 0.6 1.1 H Direct Bilirubin 0.2 AST 12 L 12 L ALT 14 12 L Alkaline Phosphatase 66 66 Total Protein 6.5 6.7 Albumin 3.2 L 3.1 L Current Medications Generic Name Dose Route Start Last Admin Trade Name Colbyq PRN Reason Stop Dose Admin Diphenhydramine HCl 25 mg 06/13/18 18:23 06/16/18 22:02 Benadryl - PO 25 mg Q6H PRN Administration FOR ITCHING Ferrous Sulfate 325 mg 06/14/18 10:00 06/17/18 09:46 Feosol - PO 325 mg DAILY AICHA Administration Folic Acid 1 mg 06/14/18 10:00 06/17/18 09:46 Folic Acid - PO 1 mg DAILY AICHA Administration Heparin Sodium (Porcine) 5,000 unit 06/13/18 22:00 06/17/18 14:39 Heparin - SQ 5,000 unit TID AICHA Administration Magnesium Hydroxide 30 ml 06/16/18 07:51 Milk Of Magnesia - PO DAILY PRN CONSTIPATION Nicotine 21 mg 06/14/18 10:00 06/17/18 09:46 Nicoderm Patch - TD 21 mg DAILY AICHA Administration Ondansetron HCl 4 mg 06/13/18 18:23 Zofran Injection IVPUSH Q6H PRN NAUSEA AND/OR VOMITING Oxycodone HCl 5 mg 06/17/18 10:51 06/17/18 13:02 Roxicodone - PO 5 mg Q6H PRN Administration PAIN LEVEL 1-5 Pantoprazole Sodium 20 mg 06/17/18 10:00 06/17/18 09:46 Protonix - PO 20 mg DAILY AICHA Administration Petrolatum 1 applic 06/14/18 15:45 06/17/18 10:01 Vaseline TP 1 applic DAILY AICHA Administration Polyethylene Glycol 17 gm 06/16/18 22:00 06/17/18 14:39 Miralax (For Daily Use) - PO 17 gm TID AICAH Administration Senna 2 tab 06/13/18 22:00 06/16/18 21:57 Senna - PO 2 tab HS AICHA Administration ASSESSMENT AND PLAN: 53 year old female smoker with chronic back pain s/p prior back surgery presented with intractable back pain and assoc radiculopathy. 1. Intractable Back Pain with Radiculopathy POD 4 s/p R HemilaminectomyL2/L3 with discectomy Progressing well with PT and current analgesic regimen. 2. Chronic Constipation Enema in addition to Miralax, MOM, Colace and Senna for constipation. Patient requested GI consult for Chronic constipation - evaluated by GI with recommendation for AXR, which shows constipation. Abdominal US and LFTs requested by GI - within normal limits except for fatty liver - for GI outpatient follow up as recommended by GI. 3. Tobacco Dependence. Counselled. Recommend Nicotine patch. DVT Px - Heparin SQ
[2018-06-17] MEDS: diphenhydrAMINE HCL 25 MG CAPSULE (FP) PO PRN (20:02)
[2018-06-17] MEDS: SENNOSIDES 8.6MG TABLET (FP) PO SCH (21:06)
[2018-06-18] MEDS: oxyCODONE HCL 5 MG TABLET PO PRN ×3 (02:04→14:12)
[2018-06-18] MEDS: diphenhydrAMINE HCL 25 MG CAPSULE (FP) PO PRN ×2 (02:56→12:48)
[2018-06-18] MEDS: HEPARIN NA (PORCINE) 5,000 UNITS/ML 1ML VIAL SQ SCH ×2 (06:08→13:39)
[2018-06-18] MEDS: POLYETHYLENE GLYCOL 3350 119 GM BTL PO SCH ×2 (06:08→13:39)
[2018-06-18 09:04] VITALS: TEMP 98.1
[2018-06-18] MEDS: PANTOPRAZOLE 20 MG TABLET (FP) PO SCH (09:04)
[2018-06-18] MEDS: FERROUS SO4 325 MG TABLET (FP) PO SCH (09:04)
[2018-06-18] MEDS: FOLIC ACID 1 MG TABLET (FP) PO SCH (09:04)
[2018-06-18] MEDS: NICOTINE 21 MG/24 HOURS TOPICAL PATCH TD SCH (09:05)
[2018-06-18] MEDS: PETROLATUM, WHITE 30 GM TUBE TP SCH (09:06)
[2018-06-18] MEDS ORDERED: FLUTICASONE PROP 0.05% 16 GM NASAL SPRAY NS SCH (15:30)
[2018-06-18 15:35] VITALS: BP 157/86; PULSE 73
--- NOTE | 2018-06-18 18:32 | PN ---
Progress Note (short form) - Note Progress Note: SUBJECTIVE: Refusing medical interview. Verbally abusive yesterday shouting at the medical team - "You are a fucking quack!, Get the fuck outta here!". Refuses interview and exam today. OBJECTIVE: Afebrile, Hemodynamically stable. Last Vital Signs Temp Pulse Resp BP Pulse Ox 98.1 F 73 19 157/86 100 06/18/18 09:00 06/18/18 15:34 06/18/18 15:34 06/18/18 15:34 06/18/18 09:00 Declines medical interview or physical exam Discharge Medications Medication Instructions Recorded Acetaminophen 650 mg PO Q4H PRN #1 capsule 06/16/18 Docusate Sodium [Colace -] 300 mg PO HS capsule 06/16/18 Ferrous Sulfate [Feosol] 325 mg PO DAILY ud 06/16/18 Folic Acid - 1 mg PO DAILY tablet 06/16/18 Magnesium Hydrox 2400MG/30Ml [Milk 30 ml PO DAILY PRN cup 06/16/18 of Magnesia -] Nicotine Patch [Nicoderm Patch -] 21 mg TD DAILY patch 06/16/18 Polyethylene Glycol 3350 [Miralax 17 gm PO DAILY bottle 06/16/18 119 gm Btl -] Sennosides [Senna -] 2 tab PO HS tablet 06/16/18 oxyCODONE HCL [Roxicodone -] 5 mg PO Q4H PRN tablet MDD 30 06/16/18 Bisacodyl Suppository [Dulcolax 10 mg [place] PRN PRN #0 supp.rect 06/17/18 Suppository -] Docusate Sodium [Colace -] 100 mg PO BID@0600,1400 30 Days #0 06/17/18 capsule Polyethylene Glycol 3350 [Miralax 17 gm PO DAILY PRN 10 Days #0 06/17/18 119 gm Btl -] bottle oxyCODONE HCL [Roxicodone -] 5 mg PO Q6H PRN 1 Days #1 tablet 06/17/18 MDD 20mg ASSESSMENT AND PLAN: 53 year old female smoker with chronic back pain s/p prior back surgery presented with intractable back pain and assoc radiculopathy. 1. Intractable Back Pain with Radiculopathy POD 5 s/p R Hemilaminectomy L2/L3 with discectomy Progressing well with PT and current analgesic regimen. 2. Chronic Constipation Continue Miralax, MOM, Colace and Senna Patient requested GI consult for Chronic constipation - evaluated by GI with recommendation for AXR, which shows constipation. Abdominal US and LFTs requested by GI - within normal limits except for fatty liver - for GI outpatient follow up as recommended by GI. 3. Tobacco Dependence. Counselled. Recommend Nicotine patch. Medically Stable - she has been discharged since Tuesday06/16/18 but patient has been refusing to leave or to be interviewed/examined by me. Her BP is slightly elevated today sec to agitation and anxiety - SBP in 120s prior to today - for further monitoring at [place]. Was informed by nurse that patient complains of some nasal congestion - given Flonase. Visit type - Emergency Visit Emergency Visit: Yes ED Registration Date: 06/11/18 Care time: The patient presented to the Emergency Department on the above date and was hospitalized for further evaluation of their emergent condition. - New Patient This patient is new to me today: No - Critical Care Critical Care patient: No - Discharge Referral Referred to [facility] Med [facility].C[facility] No
== END 2018-06-18 17:57 | DRG 310 ==
LOC: JER 10:39 → JERBED 15:10 → J5S 18:02 → OBSVTOIN 06-11 12:04 → J6S 06-13 15:27 → J5S 06-16 15:55
PROVIDERS: ADMIT Internal Medicine
PROC: 0ST20ZZ Resection of Lumbar Vertebral Disc, Open Approach (ICD-10-PCS; 2018-06-13)
PROC: 0JX70ZB Transfer Back Subcutaneous Tissue and Fascia with Skin and Subcutaneous Tissue, Open Approach (ICD-10-PCS; 2018-06-13)
PROC: B01BZZZ Fluoroscopy of Spinal Cord (ICD-10-PCS; 2018-06-13)
PROC: 0SB20ZZ Excision of Lumbar Vertebral Disc, Open Approach (ICD-10-PCS; principal; 2018-06-13 11:00)
DX: M51.16 Intervertebral disc disorders with radiculopathy, lumbar region (principal); K59.03 Drug induced constipation; M53.2X6 Spinal instabilities, lumbar region; K76.0 Fatty (change of) liver, not elsewhere classified; F17.210 Nicotine dependence, cigarettes, uncomplicated; R10.11 Right upper quadrant pain; T40.2X5A Adverse effect of other opioids, initial encounter
CPT/HCPCS: 36415; 72100-TC-FY; 72148-TC; 74019-TC-FY; 76705-TC; 80048; 80053; 80076; 83735; 84100; 85025; 85027; 85610; 85730; 86850; 86900; 86901; 88304-TC; 93005; 93010; 94010; 94760; 97116-GP; 97161-GP; 99282-25; G0378; J0131; J1644

== ENCOUNTER 2018-08-28 23:35 | Emergency (ER) | payer OTHER | END 2018-08-29 01:55 | disposition home or self-care (01) | LOC: JER 23:35 | DX: R10.9 Unspecified abdominal pain (principal); M54.89 Other dorsalgia; G89.29 Other chronic pain; F41.9 Anxiety disorder, unspecified ==

== ENCOUNTER 2018-11-04 14:01 | Emergency (ER) | payer OTHER ==
[2018-11-04 14:16] VITALS: BP 134/83; PULSE 83; BMI 23.5
--- NOTE | 2018-11-04 14:39 | PDOC ---
History of Present Illness - General Chief Complaint: Pain Stated Complaint: PAIN Time Seen by Provider: 11/04/18 14:19 - History of Present Illness Initial Comments: 11/04/18 14:38 CHIEF COMPLAINT: back pain HISTORY OF PRESENT ILLNESS: 53 yo F with hx of back surgery presents to [facility] with worsening back pain. Pt is followed by Dr. Munroe and is awaiting insurance approval to schedule surgery. Patient states she feels like she's going to fall secondary to pain to R lower back. Patient has taken ibuprofen and percocet for pain. Patient ambulatory in ED. Requesting us to contact Dr. Munroe "to see if he's contacted insurance." Patient denies loss of bowel or bladder function, denies loss of sensation to b/l extremities. Patient fully ambulatory in ED. No recent travel or sick contacts. PAST MEDICAL HISTORY: Denies past medical history FAMILY HISTORY: Denies SOCIAL HISTORY: Denies tobacco, alcohol, illicit drug use. SURGICAL HISTORY: Denies ALLERGIES: tramadol REVIEW OF SYSTEMS General/Constitutional: Denies fever or chills. Denies weakness, weight change. HEENT: Denies change in vision. Denies ear pain or discharge. Denies sore throat. Cardiovascular: Denies chest pain or shortness of breath. Respiratory: Denies cough, wheezing, or hemoptysis. Gastrointestinal: Denies nausea, vomiting, diarrhea or constipation. Denies rectal bleeding. Genitourinary: Denies dysuria, frequency, or change in urination. Musculoskeletal: Chronic low back pain. Skin and breasts: Denies rash or easy bruising. Neurologic: Denies headache, vertigo, loss of consciousness, or loss of sensation. PHYSICAL EXAM General Appearance: Well-appearing, appropriately dressed. No apparent distress , no intoxication. HEENT: EOMI, PERRLA, normal ENT inspection, normal voice, TMs normal, pharynx normal. No conjunctival pallor. No photophobia, scleral icterus. Neck: Supple. Trachea midline. No tenderness, rigidity, carotid bruit, stridor , lymphadenopathy, or thyromegaly. Respiratory/Chest: Lungs CTAB. No shortness of breath, chest tenderness, respiratory distress, accessory muscle use. No crackles, rales, rhonchi, stridor , wheezing, dullness Cardiovascular: RRR. S1, S2. No JVD, murmur, bradycardia, tachycardia. Vascular Pulses: Dorsalis-Pedis (R): 2+, Dorsalis-Pedis (L): 2+ Gastrointestinal/Abdominal: Normal bowel sounds. Abdomen soft, non-distended. No tenderness or rebound tenderness. No organomegaly, pulsatile mass, guarding , hernia, hepatomegaly, splenomegaly. Lymphatic: No adenopathy, tenderness. Musculoskeletal/Extremities: Normal inspection. FROM of all extremities, normal capillary refill. Pelvis Stable. No CVA tenderness. No tenderness to extremities, pedal edema, swelling, erythema or deformity. Integumentary: Appropriate color, dry, warm. No cyanosis, erythema, jaundice or rash Neurologic: centrifugal machine tender II-XII intact. Fully oriented, alert. Appropriate mood/affect. Motor strength 5/5. No appreciable EOM palsy, facial droop or sensory deficit. Past History - Past Medical History Allergies/Adverse Reactions: Allergies Allergy/AdvReac Type Severity Reaction Status Date / Time lactase [From Dairy Aid] Allergy Intermediate Verified 11/04/18 14:12 tramadol Allergy Intermediate Hives Verified 11/04/18 14:12 apple Allergy Mild Itching Verified 11/04/18 14:12 egg Allergy Mild Verified 11/04/18 14:12 jose Allergy Mild Verified 11/04/18 14:12 orange (food color) Allergy Mild Verified 11/04/18 14:12 pear Allergy Mild Itching Verified 11/04/18 14:12 pineapple Allergy Mild Itching Verified 11/04/18 14:12 red (food color) Allergy Mild Verified 11/04/18 14:12 wheat Allergy Mild Verified 11/04/18 14:12 Home Medications: Ambulatory Orders Magnesium Hydrox 2400MG/30Ml [Milk of Magnesia -] 30 ml PO DAILY PRN cup Nicotine Patch [Nicoderm Patch -] 21 mg TD DAILY patch 06/16/18 Polyethylene Glycol 3350 [Miralax 119 gm Btl -] 17 gm PO DAILY bottle 06/16/18 oxyCODONE HCL [Roxicodone -] 5 mg PO Q6H PRN 1 Days #1 tablet MDD 20mg 06/17/18 hydrOXYzine HCL [Atarax -] 25 mg PO HS PRN #7 tablet 08/29/18 Diphenhydramine [Benadryl -] 50 mg PO PRN PRN #10 capsule 11/04/18 Loratadine [Claritin] 10 mg PO DAILY #10 tablet 11/04/18 Anemia: No Asthma: No Cancer: No Cardiac Disorders: No CVA: No COPD: No CHF: No Dementia: No Diabetes: No GI Disorders: No Disorders: No HTN: No Hypercholesterolemia: No Liver Disease: Yes (fatty liver) Seizures: No Thyroid Disease: Yes (enlarged thyroid) - Surgical History Orthopedic Surgery: (back surgery 2011 , hand reconstruction 1995) - Immunization History Immunization Up to Date: Yes - Suicide/Smoking/Psychosocial Hx Smoking History: Never smoked Have you smoked in the past 12 months: Yes Number of Cigarettes Smoked Daily: 10 Hx Alcohol Use: No Drug/Substance Use Hx: No Substance Use Type: Marijuana *Physical Exam - Vital Signs Last Vital Signs Temp Pulse Resp BP Pulse Ox 83 17 134/83 98 11/04/18 14:13 11/04/18 14:13 11/04/18 14:13 11/04/18 14:13 Medical Decision Making - Medical Decision Making 11/04/18 14:00 53 yo F with hx of back surgery [facility] with worsening back pain. -toradol IM -lidocaine patch Patient refused Toradol and lidocaine patch. 11/04/18 14:[address] Briones's office, awaiting callback. pt currently followed by pain management with high dose percocet daily, will not give narcs 11/04/18 15:11 pt refuses lidocaine patch and toradol stating "they aren't going to work." still awaiting callback from dr boyd's office 11/04/18 15:58 Patient opts for toradol/lidocaine patch as dr munroe has not called back Patient advised to f/u with Dr. Negrete and of return precautions. 11/04/18 16:27 pt requests benadryl and claritin rx *DC/Admit/Observation/Transfer Diagnosis at time of Disposition: Chronic back pain - Discharge Dispostion Disposition: HOME Condition at time of disposition: Stable Decision to Admit order: No - Prescriptions Prescriptions: Diphenhydramine [Benadryl -] 50 mg PO PRN PRN #10 capsule PRN Reason: Allergies Loratadine [Claritin] 10 mg PO DAILY #10 tablet - Referrals Referrals: Brannon Mendez MD [Primary Care Provider] - Brett Briones MD, FAANS [Staff Physician] - - Patient Instructions Printed Discharge Instructions: Managing Chronic Low Back Pain - Post Discharge Activity
[2018-11-04] MEDS ORDERED: KETOROLAC TROMETHAMINE 30 MG/1 ML VIAL IM ONE ×2 (14:41→15:59)
[2018-11-04] MEDS ORDERED: LIDOCAINE 5% TOPICAL PATCH TP ONE ×2 (14:41→16:01)
[2018-11-04] MEDS ORDERED: LIDOCAINE 5% TOPICAL PATCH ONE (14:45)
[2018-11-04] MEDS ORDERED: KETOROLAC TROMETHAMINE 30 MG/1 ML VIAL ONE (14:45)
[2018-11-04] MEDS ORDERED: LORATADINE 10 MG TABLET ONE (15:26)
[2018-11-04] MEDS ORDERED: LORATADINE 10 MG TABLET PO ONE (15:26)
[2018-11-04] MEDS ORDERED: LIDOCAINE PATCH REMOVAL MC SCH ×2 (22:00)
== END 2018-11-04 16:32 | disposition home or self-care (01) ==
LOC: JERFT 14:01
PROC: 3E0233Z Introduction of Anti-inflammatory into Muscle, Percutaneous Approach (ICD-10-PCS; principal; 2018-11-04)
DX: M54.9 Dorsalgia, unspecified (principal); G89.29 Other chronic pain
CPT/HCPCS: 96372; 99282-25

== ENCOUNTER 2018-11-08 22:07 | Emergency (ER) | payer OTHER ==
[2018-11-08 22:13] VITALS: BP 167/99; PULSE 94; TEMP 98.4; BMI 23.5
--- NOTE | 2018-11-08 23:39 | PDOC ---
*Physical Exam - Vital Signs Last Vital Signs Temp Pulse Resp BP Pulse Ox 98.4 F 94 H 18 167/99 99 11/08/18 22:10 11/08/18 22:10 11/08/18 22:10 11/08/18 22:10 11/08/18 22:10 Medical Decision Making - Medical Decision Making 11/08/18 23:38 Patient seen by the advanced practice provider under my direct supervision. Ancillary testing reviewed as necessary. I agree with plan as outlined by the advanced practice provider. *DC/Admit/Observation/Transfer Diagnosis at time of Disposition: Chronic back pain Qualifiers: Back pain location: low back pain Back pain laterality: midline Sciatica presence: without sciatica Qualified Code(s): M54.5 - Low back pain - Discharge Dispostion Disposition: HOME Condition at time of disposition: Fair - Prescriptions Prescriptions: Methylprednisolone [Medrol Dose Giles] 4 mg PO ASDIR #21 tablet - Referrals Referrals: Tawnya Mendez [Primary Care Provider] - - Patient Instructions Additional Instructions: Rest. Take Medrol Dosepak as directed. Take Tylenol or Motrin as needed for pain. Follow manufacturers instructions for appropriate dosage. Lidocaine patches can be purchased without a prescription. These can be helpful with this type of pain. Warm moist heat applied to your back may help alleviate pain. Keep her scheduled appointment with pain management tomorrow. Return to emergency department for numbness or tingling to the rectum or genitals, worsening pain, or any other concerns. Thank you very much for choosing us to provide your emergent healthcare needs. - Post Discharge Activity
[2018-11-09] MEDS ORDERED: LIDOCAINE 5% TOPICAL PATCH TP ONE (00:04)
[2018-11-09] MEDS ORDERED: KETOROLAC TROMETHAMINE 30 MG/1 ML VIAL IM ONE (00:04)
[2018-11-09] MEDS ORDERED: KETOROLAC TROMETHAMINE 30 MG/1 ML VIAL ONE (00:18)
[2018-11-09] MEDS ORDERED: LIDOCAINE 5% TOPICAL PATCH ONE (00:18)
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
[2018-11-09] MEDS ORDERED: LIDOCAINE PATCH REMOVAL MC SCH (22:00)
== END 2018-11-09 01:58 | disposition home or self-care (01) ==
LOC: JER 22:07
PROC: 3E0233Z Introduction of Anti-inflammatory into Muscle, Percutaneous Approach (ICD-10-PCS; principal; 2018-11-08)
DX: M54.5 Low back pain (principal); F17.210 Nicotine dependence, cigarettes, uncomplicated; K76.0 Fatty (change of) liver, not elsewhere classified; F99 Mental disorder, not otherwise specified
CPT/HCPCS: 36415; 82272; 99281-25

== ENCOUNTER 2018-11-13 04:50 | Emergency (ER) | payer OTHER ==
--- NOTE | 2018-11-13 04:54 | PDOC ---
History of Present Illness - General Stated Complaint: ABD PAIN Time Seen by Provider: 11/13/18 04:54 History Source: Patient Exam Limitations: No Limitations - History of Present Illness Initial Comments: 53 year old female with PMH gastritis (currently no medical treatment), chronic back pain presented to ED for epigastric pain x1 week, worsening last night. Pt admited to nausea, vomiting since last night. She admitted to two loose bowel movements yesterday. Pt reported her sister has diarrhea. Pt denied chest pain, shortness of breath, palpitations, lightheadedness. Pt stated last endoscopy was >10 years ago. She stated that she has had difficulty controlling her GERD, and she has an appointment with her GI doctor next Tuesday. Past History - Past Medical History Allergies/Adverse Reactions: Allergies Allergy/AdvReac Type Severity Reaction Status Date / Time lactase [From Dairy Aid] Allergy Intermediate Verified 11/08/18 22:10 tramadol Allergy Intermediate Hives Verified 11/08/18 22:10 apple Allergy Mild Itching Verified 11/08/18 22:10 egg Allergy Mild Verified 11/08/18 22:10 jose Allergy Mild Verified 11/08/18 22:10 orange (food color) Allergy Mild Verified 11/08/18 22:10 pear Allergy Mild Itching Verified 11/08/18 22:10 pineapple Allergy Mild Itching Verified 11/08/18 22:10 red (food color) Allergy Mild Verified 11/08/18 22:10 wheat Allergy Mild Verified 11/08/18 22:10 Home Medications: Ambulatory Orders Oxycodone HCl/Acetaminophen [Percocet 10-325 mg Tablet] 1 each PO TID 11/13/18 Anemia: No Asthma: No Cancer: No Cardiac Disorders: No CVA: No COPD: No CHF: No Dementia: No Diabetes: No GI Disorders: No Disorders: No HTN: No Hypercholesterolemia: No Liver Disease: Yes (fatty liver) Psychiatric Problems: Yes Seizures: No Thyroid Disease: Yes (enlarged thyroid) - Surgical History Orthopedic Surgery: (back surgery 2011 , hand reconstruction 1995) - Immunization History Immunization Up to Date: Yes - Suicide/Smoking/Psychosocial Hx Smoking History: Current every day smoker Have you smoked in the past 12 months: Yes Number of Cigarettes Smoked Daily: 6 Hx Alcohol Use: No Drug/Substance Use Hx: No Substance Use Type: Marijuana Review of Systems - Review of Systems Able to Perform ROS?: Yes Comments:: General: denied fever, chills, generalized weakness. HEENT: denied sore throat, rhinorrhea, ear pain. Cardiovascular: denied chest pain, palpitations, syncope, diaphoresis. Respiratory: denied shortness of breath, cough, sputum production, hemoptysis. Gastrointestinal: admitted to abdominal pain, nausea, vomiting, diarrhea. denied constipation, blood in stool. Genitourinary: denied dysuria, increased urinary frequency, hematuria, urinary incontinence, flank pain. Back: denied back pain. Musculoskeletal: denied joint pain, muscle pain, joint swelling. Neurological: denied headache, dizziness, numbness, tingling, weakness. Integumentary: denied rash, laceration, abrasion. Hematologic/Lymphatic: denied bruising or bleeding. *Physical Exam - Physical Exam Comments: Constitutional: Well-nourished, Well-developed, appearing stated age. HEENT: head is normocephalic, atraumatic. EOMI. PERRLA. Neck: supple. Full ROM. Cardiovascular: regular heart rhythm. no murmurs. no pericardial friction rub. Respiratory: clear to auscultation bilaterally. no crackles, rhonchi or wheezing. no stridor. Gastrointestinal: soft, flat. epigastric tenderness to palpation. moseley negative. normal bowel sounds. no rebound, guarding, masses. Extremities: peripheral pulses intact. no lower extremity edema. Neurological: CN 2-12 grossly intact. moves all four extremities. Psych: awake, alert, oriented x3. follows commands. answers questions appropriately. ED Treatment Course - LABORATORY CBC & Chemistry Diagram: 11/13/18 05:10 11/13/18 05:10 Medical Decision Making - Medical Decision Making 53 year old female with above PMH presented to ED for epigastric pain. Initial Vital Signs Temp Pulse Resp BP Pulse Ox 97.8 F 60 18 146/90 100 11/13/18 05:00 11/13/18 05:00 11/13/18 05:00 11/13/18 05:00 11/13/18 05:00 Afebrile. No tachycardia. No tachypnea. Mild hypertension. No hypoxia on room air. Labs ordered: CBC, CMP, lipase Imaging ordered: none Medications ordered: pepcid, maalox, zofran, normal saline bolus 1000 cc EKG performed at 0559: rate 55, regular rhythm, normal axis, normal intervals, no acute ST changes. 11/13/18 05:56 CBC WBC 3.7 K/mm3 (4.0-10.0) L 11/13/18 05:10 RBC 3.87 M/mm3 (3.60-5.2) 11/13/18 05:10 Hgb 13.2 GM/dL (10.7-15.3) 11/13/18 05:10 Hct 38.3 % (32.4-45.2) 11/13/18 05:10 MCV 99.0 fl (80-96) H 11/13/18 05:10 MCH 34.0 pg (25.7-33.7) H 11/13/18 05:10 MCHC 34.3 g/dl (32.0-36.0) 11/13/18 05:10 RDW 12.8 % (11.6-15.6) 11/13/18 05:10 Plt Count 206 K/MM3 (134-434) 11/13/18 05:10 MPV 9.8 fl (7.5-11.1) 11/13/18 05:10 Absolute Neuts (auto) 1.2 K/mm3 (1.5-8.0) L 11/13/18 05:10 Neutrophils % 32.2 % (42.8-82.8) L D 11/13/18 05:10 Lymphocytes % 55.7 % (8-40) H D 11/13/18 05:10 Monocytes % 8.3 % (3.8-10.2) 11/13/18 05:10 Eosinophils % 2.6 % (0-4.5) 11/13/18 05:10 Basophils % 1.2 % (0-2.0) 11/13/18 05:10 Nucleated RBC % 0 % (0-0) 11/13/18 05:10 CMP Sodium 143 mmol/L (136-145) 11/13/18 05:10 Potassium 3.8 mmol/L (3.5-5.1) 11/13/18 05:10 Chloride 106 mmol/L (98-107) 11/13/18 05:10 Carbon Dioxide 33 mmol/L (21-32) H 11/13/18 05:10 Anion Gap 4 MMOL/L (8-16) L 11/13/18 05:10 BUN 13.8 mg/dL (7-18) 11/13/18 05:10 Creatinine 0.8 mg/dL (0.55-1.3) 11/13/18 05:10 Est GFR (CKD-EPI)AfAm 98.24 11/13/18 05:10 Est GFR (CKD-EPI)NonAf 84.76 11/13/18 05:10 Random Glucose 89 mg/dL (74-106) 11/13/18 05:10 Calcium 9.1 mg/dL (8.5-10.1) 11/13/18 05:10 Magnesium 2.4 mg/dL (1.8-2.4) 11/13/18 05:10 Total Bilirubin 0.6 mg/dL (0.2-1) 11/13/18 05:10 AST 14 U/L (15-37) L 11/13/18 05:10 ALT 16 U/L (13-61) 11/13/18 05:10 Alkaline Phosphatase 94 U/L (45-117) 11/13/18 05:10 Total Protein 7.0 g/dl (6.4-8.2) 11/13/18 05:10 Albumin 3.8 g/dl (3.4-5.0) 11/13/18 05:10 Lipase 76 U/L (73-393) 11/13/18 05:10 Labs grossly normal. Pt reported improvement of symptoms. Pt informed to F/U with PCP/GI. Pt advised to take Zantac over the counter. Pt discharged. *DC/Admit/Observation/Transfer Diagnosis at time of Disposition: Epigastric pain - Discharge Dispostion Disposition: HOME Condition at time of disposition: Improved Decision to Admit order: No - Referrals Referrals: Tawnya Mendez [Primary Care Provider] - - Patient Instructions Printed Discharge Instructions: DI for Gastritis, GERD Diet Additional Instructions: Follow up with your critical systems technician within 3 days. Your care is not complete until you follow up. Take Zantac over the counter. Take as advised on label. Follow the GERD diet - I have included information in your discharge paperwork. Do not eat 2 hours prior to bed. Return to the Emergency Department for increasing pain, chest pain, shortness of breath, vomiting, blood in stool, or any other new, worsening or concerning symptoms. - Post Discharge Activity Forms/Work/School Notes: Back to Work
--- NOTE | 2018-11-13 04:56 | PDOC ---
Attending Attestation - Resident Resident Name: Senia Maldonado - ED Attending Attestation I have performed the following: I have examined & evaluated the patient, The case was reviewed & discussed with the resident, I agree w/resident's findings & plan - Physicial Exam PE: 11/13/18 05:10 Agree with resident exam Heart Score/ECG Review - ECG Intrepretation Rhythm: Regular Rhythm - Peggs Peggs: Normal - P and VT Prominent R with upright T in V1 (true posterior NC): No WPW: No - ST and T Early Repolarization: No Non Specific ST-T Wave changes: No - ECG Impressions Normal ECG: Yes Non-specific ST Elevation: No Ischemic Changes: No Torsades mack Pointes: No WPW: No
[2018-11-13] MEDS ORDERED: ONDANSETRON 4 MG/2 ML VIAL IVPUSH ONE (05:01)
[2018-11-13] MEDS ORDERED: FAMOTIDINE 20 MG/50 ML IVPB 20 MG/50 ML MG IVPB ONE ×2 (05:01→05:14)
[2018-11-13] MEDS ORDERED: SODIUM CHLORIDE 1,000 ML IV STA (05:01)
[2018-11-13] MEDS ORDERED: MAG HYDROX/AL HYDROX/SIMETH 30 ML UNIT-DOSE CUP PO ONE (05:01)
[2018-11-13] MEDS ORDERED: MAG HYDROX/AL HYDROX/SIMETH 30 ML UNIT-DOSE CUP ONE (05:13)
[2018-11-13] MEDS ORDERED: ONDANSETRON 4 MG/2 ML VIAL ONE (05:14)
[2018-11-13 05:19] LABS: BASO % 1.2 % (0-2.0); EOS % 2.6 % (0-4.5); HEMATOCRIT 38.3 % (32.4-45.2); HEMOGLOBIN 13.2 GM/dL (10.7-15.3); LYMPH % 55.7 % (8-40); MCHC 34.3 g/dl (32.0-36.0); MEAN PLT VOLUME 9.8 fl (7.5-11.1); MONO % 8.3 % (3.8-10.2); NEUT % 32.2 % (42.8-82.8); PLATELET COUNT 206 K/MM3 (134-434); RBC 3.87 M/mm3 (3.60-5.2); RDW 12.8 % (11.6-15.6); WHITE BLOOD COUNT 3.7 K/mm3 (4.0-10.0)
[2018-11-13 05:30] LABS: INR 0.96 (0.83-1.09); PROTHROMBIN TIME (PATIENT) 11.3 SEC (9.7-13.0)
[2018-11-13 05:36] VITALS: BP 146/90; PULSE 60; TEMP 97.8; BMI 24.0
[2018-11-13 05:50] LABS: ALBUMIN 3.8 g/dl (3.4-5.0); BILIRUBIN,TOTAL 0.6 mg/dL (0.2-1); BLOOD UREA NITROGEN 13.8 mg/dL (7-18); CALCIUM 9.1 mg/dL (8.5-10.1); CREATININE 0.8 mg/dL (0.55-1.3); MAGNESIUM 2.4 mg/dL (1.8-2.4); POTASSIUM 3.8 mmol/L (3.5-5.1)
--- NOTE | 2018-11-13 12:55 | EKG ---
Test Reason : Blood Pressure : / mmHG Vent. Rate : 055 BPM Atrial Rate : 055 BPM P-R Int : 150 ms QRS Dur : 088 ms QT Int : 474 ms P-R-T Axes : 068 050 041 degrees QTc Int : 453 ms SINUS BRADYCARDIA OTHERWISE NORMAL ECG WHEN COMPARED WITH ECG OF 09-JUN-2018 16:42, NO SIGNIFICANT CHANGE WAS FOUND Confirmed by ADRIAN ALTAMIRANO MD ([id number]) on 11/13/2018 12:54:47 PM Referred By: Confirmed By:ADRIAN ALTAMIRANO MD
== END 2018-11-13 06:30 | disposition home or self-care (01) ==
LOC: JER 04:50
PROC: 3E033GC Introduction of Other Therapeutic Substance into Peripheral Vein, Percutaneous Approach (ICD-10-PCS; principal; 2018-11-13)
DX: K21.9 Gastro-esophageal reflux disease without esophagitis (principal); K29.70 Gastritis, unspecified, without bleeding
CPT/HCPCS: 36415; 80053; 83690; 83735; 85025; 85610; 93005; 93010; 96365; 99284-25; J7030

== ENCOUNTER 2021-07-23 00:22 | Emergency (ER) | payer OTHER ==
[2021-07-23 00:49] VITALS: BP 108/76; PULSE 71; TEMP 98.1; BMI 26.6
== END 2021-07-23 05:45 | disposition short-term general hospital (02) ==
LOC: JER 00:22
DX: R20.2 Paresthesia of skin (principal); R15.9 Full incontinence of feces
CPT/HCPCS: 99283-25

== ENCOUNTER 2021-08-05 23:13 | Emergency (ER) | payer OTHER ==
[2021-08-05 23:26] VITALS: BP 149/90; PULSE 82; TEMP 98.4; BMI 25.7
[2021-08-06] MEDS ORDERED: ACETAMINOPHEN 500 MG TABLET (FP) PO ONE (02:53)
[2021-08-06] MEDS ORDERED: LIDOCAINE 5% TOPICAL PATCH TP ONE (02:53)
[2021-08-06] MEDS ORDERED: LIDOCAINE 5% TOPICAL PATCH ONE (02:57)
[2021-08-06] MEDS ORDERED: ACETAMINOPHEN 325 MG TABLET (FP) ONE (02:57)
[2021-08-06] MEDS ORDERED: DEXAMETHASONE SOD PHOSPHATE 10 MG/1 ML VIAL ONE (03:05)
[2021-08-06] MEDS ORDERED: DEXAMETHASONE SOD PHOSPHATE 10 MG/1 ML VIAL IM ONE (03:07)
[2021-08-06] MEDS ORDERED: LIDOCAINE PATCH REMOVAL MC SCH (22:00)
== END 2021-08-06 04:09 | disposition home or self-care (01) ==
LOC: JER 23:13
PROC: 3E023GC Introduction of Other Therapeutic Substance into Muscle, Percutaneous Approach (ICD-10-PCS; principal; 2021-08-05)
DX: M54.89 Other dorsalgia (principal); T78.1XXA Other adverse food reactions, not elsewhere classified, initial encounter
CPT/HCPCS: 99284-25; J1100

== ENCOUNTER 2021-09-08 02:19 | Emergency (ER) | payer OTHER ==
[2021-09-08 02:51] VITALS: BP 146/90; PULSE 75; TEMP 98.3; BMI 25.7
[2021-09-08] MEDS ORDERED: AZITHROMYCIN 500 MG TABLET PO ONE (04:22)
[2021-09-08] MEDS ORDERED: AZITHROMYCIN 250 MG TABLET ONE (04:27)
[2021-09-08] MEDS ORDERED: LIDOCAINE HCL 1%, 10 MG/ML (20ML VIAL) ONE (04:28)
[2021-09-08] MEDS ORDERED: cefTRIAXone SODIUM 1 GM VIAL ONE (04:28)
== END 2021-09-08 06:07 ==
LOC: JER 02:19
DX: Z20.2 Contact with and (suspected) exposure to infections with a predominantly sexual mode of transmission (principal)
CPT/HCPCS: 99284-25

== ENCOUNTER 2021-10-30 22:49 | Emergency (ER) | payer OTHER ==
[2021-10-30 23:00] VITALS: BMI 26.6
[2021-10-30] MEDS ORDERED: ACETAMINOPHEN 1000 MG/100 ML BAG IVPB ONE (23:37)
[2021-10-30] MEDS ORDERED: SODIUM CHLORIDE 0.9% 500 ML INFUS.BAG IV ONE (23:42)
[2021-10-30] MEDS ORDERED: ACETAMINOPHEN INJECTION 100 ML IVPB ONE (23:54)
[2021-10-30 23:57] LABS: BASO % 0.7 % (0-2.0); EOS % 4.3 % (0-4.5); HEMATOCRIT 35.2 % (32.4-45.2); HEMOGLOBIN 12.3 GM/dL (10.7-15.3); LYMPH % 45.9 % (8-40); MCHC 35.1 g/dl (32.0-36.0); MEAN PLT VOLUME 8.8 fl (7.5-11.1); MONO % 11.9 % (3.8-10.2); NEUT % 37.2 % (42.8-82.8); PLATELET COUNT 258 10^3/uL (134-434); RBC 3.74 M/mm3 (3.60-5.2); RDW 13.2 % (11.6-15.6); WHITE BLOOD COUNT 4.4 K/mm3 (4.0-10.0)
[2021-10-31 00:23] LABS: CALCIUM 8.6 mg/dL (8.5-10.1)
[2021-10-31 00:24] LABS: ALBUMIN 3.5 g/dl (3.4-5.0); BLOOD UREA NITROGEN 16.4 mg/dL (7-18); MAGNESIUM 2.2 mg/dL (1.8-2.4)
[2021-10-31 00:27] LABS: CREATININE 0.9 mg/dL (0.55-1.3)
[2021-10-31 00:29] LABS: TOT PROT 7.1 g/dl (6.4-8.2)
[2021-10-31 00:54] LABS: BILIRUBIN,TOTAL 0.5 mg/dL (0.2-1)
[2021-10-31] MEDS ORDERED: diphenhydrAMINE HCL 25 MG CAPSULE (FP) PO ONE ×2 (00:59→01:06)
[2021-10-31 01:19] LABS: INR 1.05 (0.83-1.09); PROTHROMBIN TIME (PATIENT) 12.1 SEC (9.7-13.0)
[2021-10-31 05:41] VITALS: BP 109/56; PULSE 74; RESP 16; TEMP 98
== END 2021-10-31 06:26 | disposition home or self-care (01) ==
LOC: JER 22:49
PROC: 3E0333Z Introduction of Anti-inflammatory into Peripheral Vein, Percutaneous Approach (ICD-10-PCS; principal; 2021-10-30)
DX: U07.1 COVID-19 (principal); R06.02 Shortness of breath; E07.9 Disorder of thyroid, unspecified
CPT/HCPCS: 36415; 71045-TC-FY; 71275-TC; 80053; 83735; 84439; 84443; 84484; 85025; 85379; 85610; 85730; 93005; 93010; 99285-25; Q9967

== ENCOUNTER 2021-12-17 01:28 | Emergency (ER) | payer OTHER ==
[2021-12-17 01:40] VITALS: BP 145/72; PULSE 82; RESP 17; TEMP 97.9; BMI 25.7
[2021-12-17] MEDS ORDERED: AMOX TR/POT CLAV 875MG/125MG TABLETS (FP) PO ONE (05:12)
[2021-12-17] MEDS ORDERED: AMOX TR/POT CLAV 875MG/125MG TABLETS (FP) ONE (05:20)
== END 2021-12-17 06:54 | disposition home or self-care (01) ==
LOC: JER 01:28
DX: R51.9 Headache, unspecified (principal)
CPT/HCPCS: 70486-TC; 99284-25